=== PATIENT | female | born 1940 | race Two or more races ===

== ENCOUNTER 2024-06-04 12:03 | Inpatient (IN) | payer MEDICARE, MEDICAID ==
[~2024-06-04] VITALS: Ht 162.6 cm; Wt 86.0 kg
[2024-06-04] VITALS (7 sets, daily range): BP systolic 90–111; BP diastolic 47–61; PULSE 82–123; RESP 16–30; O2SAT 97–100
--- NOTE | 2024-06-04 12:29 | ED.PDOC ---
CPR-HPI HPI Comments 85 y/o F is BIBA for the C/c of CPR x1127, today. Per EMS, the pt was in the car with the family heading down to the ER due from the pt having SOB. En rout to the ER the family witnessed the pt go down in the car. CPR started at 1127 as well as an unknown down time due from the family being bad Hx. EMS states on receiving the call at x1124 and arriving [phone]. En rout to the ED, EMS gave the pt epinephrine x4 with the last epinephrine being at 1154. EMS note that the pt was PEA the entire time for the full 30 minutes. Arrival to the ED was 1203, CPR started at 1203 and the pt ROSC at 1207. Unable to get PMHx, SHx of pt due from CPR. Family was not at [facility] when pt arrived nor does the pt have prior visits. EMS did state that the pt has COPD. Chief Complaint: CPR Time Seen by MD: 12:03 Reviewed Notes: Nurses Notes, Bag Sorter Notes, Medications, Allergies Allergies: Coded Allergies: NO KNOWN ALLERGIES (Unverified , 06/04/24) Information Source: Emergency Med Personnel Mode of Arrival: EMS Timing: Minutes Duration: Down time prior EMS: (Unknown) Comments Unknown down time but from the received call it would be a total of 39 minutes down since EMS received the call Onset: Witnessed (by family) Available Hx: Unknown Inital rhythm: PEA Treatment: CPR Response: Sustained return of pulse Associated signs and symptoms: None Past Medical History PAST MEDICAL HISTORY: COPD, Unobtainable Surgical History: Unobtainable CLASSROOM INSTRUCTIONAL AIDE History: Unobtainable Family History Family History: Unobtainable Social History Smoker: Unobtainable Alcohol: Unobtainable Drugs: Unobtainable Lives In: Unobtainable Unable to Obtain due to: Medical Urgency, Intubated All Other Systems: Reviewed and Negative Physical Exam General Appearance: Other (PATIENT IS COMATOSE POST CPR) HEENT: Normal ENT Inspection, PERRL/EOMI, Other (PUPILS MID SIZE NONREACTIVE) Neck: Full Range of Motion, Non-Tender, Normal, Normal Inspection Respiratory: Crackles, Decreased Breath Sounds, Expiration, Inspiration, Other (PATIENT ON A RESPIRATOR) Cardiovascular: Irregular, Tachycardia Breast Exam: (L) Mass, Other (MOST PROBABLY BREAST CARCINOMA) Gastrointestinal: Other (MORBIDLY OBESE BUT ALSO DISTENDED) Genitalia: Deferred Pelvic: Deferred Rectal: Deferred Extremities: No pedal edema, Other (PATIENT COMATOSE) Musculoskeletal : Apperance: Normal Neurologic: Flacid, Other (COMATOSE INTUBATED) Cerebellar Function: Unable to Test Reflexes: NOT DONE Skin: Dry, Mottled, Warm Peripheral Pulses: 1+ carotid (R), 1+ carotid (L) Lymphatic: No Adenopathy EKG EKG : Pulse Rate (adult): 120 [place]: Normal Cardiac Rhythm: Afib Was a procedure done? Was a procedure done?: No Differential Dx CPR Differential Diagnosis: Cardiopulmonary arrest, Dysrhythmia, Electrolyte disorder, Myocardial Infarction, Pulmonary Embolus, Respiratory Failure X-Ray, Labs, Meds, VS Vital Signs Date Time Temp Pulse Resp B/P (MAP) Pulse Ox O2 Delivery O2 Flow Rate FiO2 06/04/24 17:53 84 06/04/24 17:26 115/59 06/04/24 17:15 84 22 111/57 (75) 100 06/04/24 17:00 108/59 06/04/24 17:00 108/59 06/04/24 17:00 82 22 108/59 (75) 100 06/04/24 16:45 85 22 104/57 (73) 100 06/04/24 16:30 87 22 113/62 (79) 100 06/04/24 16:17 82 22 111/61 (78) 100 40 06/04/24 16:15 84 22 105/57 (73) 100 06/04/24 16:00 97.8 82 22 104/58 (73) 99 97.8 06/04/24 16:00 104/58 06/04/24 16:00 104/58 06/04/24 15:56 120 06/04/24 15:49 82 22 111/61 (78) 100 40 06/04/24 15:45 84 22 104/62 (76) 100 06/04/24 15:30 125 22 105/66 (79) 100 06/04/24 15:27 120 06/04/24 15:15 121 22 101/58 (72) 100 06/04/24 15:15 119 22 101/58 97 60 06/04/24 15:13 101/58 06/04/24 15:00 107/58 06/04/24 15:00 121 22 107/58 (74) 100 06/04/24 14:45 116 22 89/62 (71) 100 06/04/24 14:30 88/50 06/04/24 14:30 87/56 06/04/24 14:30 116 22 87/56 (66) 100 06/04/24 14:15 117 22 92/51 (65) 100 06/04/24 14:00 121 22 77/49 (58) 100 06/04/24 13:56 77/49 06/04/24 13:48 119 18 71/46 (54) 100 60 06/04/24 13:45 97.7 122 18 69/45 (53) 100 97.7 06/04/24 13:45 69/45 06/04/24 13:40 69/45 06/04/24 13:30 67/43 06/04/24 13:30 124 18 67/43 (51) 100 06/04/24 13:15 126 18 52/29 (37) 100 06/04/24 13:05 123 18 100 Mechanical Ventilator+ 100 100 06/04/24 13:00 131 18 61/42 (48) 100 06/04/24 12:56 137 06/04/24 12:45 135 18 100/46 (64) 100 06/04/24 12:30 134 18 96/48 (64) 100 06/04/24 12:30 129 18 96/48 (64) 100 100 06/04/24 12:15 147 18 108/61 (77) 100 06/04/24 12:03 95.8 0 0 0/0 (0) 0 Lab Test 06/04/24 16:26 06/04/24 15:38 06/04/24 14:54 06/04/24 13:59 Range/Units Lactic Acid Level Pending 6.6 *H 0.4-2.0 mmol/L Troponin I High Sensitivity Pending 21 </=34 ng/L Urine Color Yellow Yellow Urine Clarity Turbid H Clear Urine pH 5.5 5.0-9.0 Urine Specific [place] 1.021 1.001-1.035 Urine Protein 1+ H Negative Urine Ketones Negative Negative Urine Blood 1+ H Negative /uL Urine Nitrite Negative Negative Urine Bilirubin Negative Negative Urine Urobilinogen Normal Negative mg/dL Urine Leukocyte Esterase Negative Negative /uL Urine RBC 37 0 - 4 /hpf Urine Microscopic WBC 26 H 0-5 /HPF Urine Squamous Epithelial Cells Few <5 /hpf Urine Bacteria None seen None Seen /hpf Urine Glucose 4+ H Normal mg/dL Urine Opiates Screen Neg NEGATIVE Urine Fentanyl Screen Neg NEGATIVE Urine Barbiturates Screen Neg NEGATIVE Urine Phencyclidine Screen Neg NEGATIVE Urine Amphetamines Screen Neg NEGATIVE Urine Benzodiazepines Screen Pos NEGATIVE Urine Cocaine Screen Neg NEGATIVE Urine Cannabinoids Screen Neg NEGATIVE Blood Gas Specimen Type Arterial Blood Gas Sample Site Right radial Blood Gas Patient Temperature 37.0 Arterial Blood Date Drawn [id number] Arterial Blood pH 7.503 H 7.350-7.450 Arterial Blood Partial Pressure CO2 53.7 H 32.0-45.0 mmHg Arterial Blood Partial Pressure O2 87.0 83.0-108.0 mmHg Arterial Blood HCO3 41.2 H 21.0-28.0 mmol/L Arterial Blood Oxygen Saturation 97.4 94.0-98.0 % Arterial Blood Base Excess 16.3 H -2.0-3.0 mmol/L Arterial Blood Oxyhemoglobin 95.2 94.0-98.0 % Arterial Blood Carboxyhemoglobin 1.6 H 0.5-1.5 % Arterial Blood Methemoglobin 0.7 0.0-1.5 % Pawan Test Modified Blood Gas Total Hemoglobin 8.20 L 12.0-16.0 g/dL Blood Gas Set Respiration Rate 22.0 Blood Gas Modality Vent - ac FiO2 % 60.0 Blood Gas Tidal Volume 400.0 Blood Gas PEEP or CPAP 5.0 Blood Gas Critical Value Read Back Yes White Blood Count 9.5 4.4-10.8 10^3/uL Red Blood Count 2.81 L 4.0-5.20 10^6/uL Hemoglobin 7.0 *L 12.2-16.2 g/dL Hematocrit 24.7 L 36.0-46.0 % Mean Corpuscular Volume 88.0 80.0-100.0 fL Mean Corpuscular Hemoglobin 24.8 L 28.0-32.0 pg Mean Corpuscular Hemoglobin Concent 28.2 L 32.0-36.0 g/dL Red Cell Distribution Width 21.0 H 11.8-14.3 % Platelet Count 265 140-450 10^3/uL Mean Platelet Volume 8.1 6.9-10.8 fL Neutrophils (%) (Auto) 37.0-80.0 % Lymphocytes (%) (Auto) 10.0-50.0 % Monocytes (%) (Auto) 0.0-12.0 % Basophils (%) (Auto) 0.0-2.0 % Neutrophils # (Auto) 1.6-8.6 10 ^3/uL Lymphocytes # (Auto) 0.4-5.4 10 ^3/uL Monocytes # (Auto) 0-1.3 10 ^3/uL Differential Total Cells Counted 100.0 100 Neutrophils % (Manual) 77 37.0-80.0 Band Neutrophils % (Manual) 17 Lymphocytes % (Manual) 3 L 10.0-50.0 Monocytes % (Manual) 2 0-12 Eosinophils % (Manual) 1 0-7 Basophils % (Manual) 0 0.0-2.0 Metamyelocytes % (manual) 0 Myelocytes % (Manual) 0 Promyelocytes % (Manual) 0 Blast Cells % (Manual) 0 Reactive Lymphocytes 0 Platelet Estimate Adequate Hypochromasia (manual) Slight Anisocytosis (manual) Slight Prothrombin Time 10.6 9.3-11.8 sec Prothrombin Time INR 1.00 0.9-1.15 Activated Partial Thromboplast Time 22.9 L 24.5-34.5 SEC D-Dimer, Quantitative 13.83 H 0.0-0.49 mg/L FEU Sodium Level 143 136-145 mmol/L Potassium Level 3.9 3.5-5.1 mmol/L Chloride Level 95 L 98-107 mmol/L Carbon Dioxide Level 39 H 20-31 mmol/L Anion Gap 9 5-15 Blood Urea Nitrogen 31 H 9-23 mg/dL Creatinine 0.91 0.550-1.02 mg/dL Glomerular Filtration Rate Calc 61 >90 mL/min BUN/Creatinine Ratio 34.1 H 10.0-20.0 Serum Glucose 251 H 74-106 mg/dL Calcium Level 9.2 8.7-10.4 mg/dL Total Bilirubin 0.3 0.2-1.0 mg/dL Aspartate Amino Transferase (AST) 56 H 13-40 U/L Alanine Aminotransferase (ALT) 28 7-40 U/L Alkaline Phosphatase 97 46-116 U/L Total Protein 5.5 L 5.7-8.2 g/dL Albumin 3.5 3.2-4.8 g/dL Test 06/04/24 13:53 06/04/24 13:22 06/04/24 13:21 Range/Units Influenza Type A Antigen Negative Negative Influenza Type B Antigen Negative Negative SARS-CoV-2 Antigen (Rapid) Negative NEGATIVE Blood Gas Specimen Type Arterial Blood Gas Sample Site Right radial Blood Gas Patient Temperature 37.0 Arterial Blood Date Drawn [id number] Arterial Blood pH 7.344 L 7.350-7.450 Arterial Blood Partial Pressure CO2 63.9 *H 32.0-45.0 mmHg Arterial Blood Partial Pressure O2 273.6 H 83.0-108.0 mmHg Arterial Blood HCO3 34.0 H 21.0-28.0 mmol/L Arterial Blood Oxygen Saturation 99.7 H 94.0-98.0 % Arterial Blood Base Excess 7.3 H -2.0-3.0 mmol/L Arterial Blood Oxyhemoglobin 97.8 94.0-98.0 % Arterial Blood Carboxyhemoglobin 1.4 0.5-1.5 % Arterial Blood Methemoglobin 0.5 0.0-1.5 % Pawan Test Modified Blood Gas Total Hemoglobin 7.60 L 12.0-16.0 g/dL Blood Gas Set Respiration Rate 18.0 Blood Gas Modality Vent - ac FiO2 % 100.0 Blood Gas Tidal Volume 400.0 Blood Gas PEEP or CPAP 5.0 Specimen Drawn By Head Stock Transfer Clerk sandy barber Blood Gas Critical Value Read Back Yes Blood Gas Notified Whom rommel Anaya Blood Gas Notified Time [id number] Blood Gas Notified By Head Stock Transfer Clerk sandy barber Troponin I High Sensitivity 35 *H </=34 ng/L Current Medications Medications (Trade) Dose Ordered Sig/Mickey Route Start Time Stop Time Status Last Admin Midazolam HCl 50 ml @ 1 mls/hr Q24H IV 06/04/24 12:45 06/04/24 14:30 Norepinephrine Bitartrate 250 ml @ 3.75 mls/hr Q24H IV 06/04/24 13:30 06/04/24 13:30 Sodium Chloride 500 ml @ 500 mls/hr Q1H ONCE IV 06/04/24 13:30 06/04/24 14:29 DC 06/04/24 13:23 Ceftriaxone Sodium 50 ml @ 100 mls/hr ONCE ONCE IV 06/04/24 16:15 06/04/24 16:44 DC 06/04/24 16:18 Piperacillin Sod/ Tazobactam Sod 100 ml @ 100 mls/hr ONCE ONCE IV 06/04/24 16:15 06/04/24 17:14 DC 06/04/24 17:02 X-Ray, Labs, Meds, VS Comment COURSE IN THE EMERGENCY DEPARTMENT EVENTFUL PATIENT CAME IN CODE BLUE WITH A CPR IN PROGRESS PATIENT AT THE SCENE FOR 15 MINUTES ON ARRIVAL PATIENT CONTINUED S AND RECOVERED IS STRONG PULSE THEN SHE WENT TO UNCONTROLLED ATRIAL FIBRILLATION SHE WAS ELECTRIC SHOCKED AT 20 AND CONVERTED TO NORMAL ATRIAL FIBRILLATION BUT STILL AT 1:20 A.M. WITH SOME PVCS PATIENT IS INTUBATED THE TUBE IS INTO THE RIGHT BRONCHUS AND WILL BE PULLED AT LEAST 1 IN THE CHEST X-RAY SHOWS AIR MULTIPLE AIRSPACE OPACITIES IN THE PLEURAL EFFUSIONS LEFT SIDE CBC 9500 WITH 77% NEUTROPHILS H AND H SEVEN AND 24.7 INR 1.00 D-DIMER 13.8 VERY ELEVATED BUT THE PATIENT HAD ELECTRIC SHOCK CMP BLOOD SUGAR 251 LACTIC ACID 6.6 TROPONIN 21 INFLUENZA A NEGATIVE INFLUENZA B NEGATIVE COVID-19 NEGATIVE PATIENT IS DNR AT THIS TIME THE FAMILY AT BEDSIDE AND WISHES TO CONTINUE TAKING CARE OF THIS PATIENT PATIENT WILL BE ADMITTED TO CCU FOR FURTHER CARE CARDIOLOGY WILL BE CONSULTED Time of 1ST Reevaluation: 12:33 Reevaluation 1ST: Unchanged Time of 2ND Reevaluation: 15:49 Reevaluation 2ND: Unchanged Patient Education/Counseling: Pt Unresponsive Family Education/Counseling: No Family Present Departure 1 Departure Time of Disposition: 15:52 Impression: Primary Impression: Cardiopulmonary arrest with successful resuscitation Additional Impressions: Uncontrolled atrial fibrillation Opacities of both lungs present on chest x-ray Pleural effusion Anemia Elevated d-dimer Hyperglycemia due to diabetes mellitus Elevated lactic acid level History of COPD Disposition: ADMITTED INPATIENT Admit to: ICU Condition: Critical Critical Care Note Critical Care Time?: Yes (30 min-critical care time only) Heart Score Heart Score: Heart Score Response (Comments) Value History Highly Suspicious 2 EKG Repolarization Disturb 1 Age >65 2 Risk Factors >3 or Hx ASHD 2 Troponin Normal limit 0 Total 7 Stability Stability form required: No I personally scribed for LENNIE FLORES MD ([email or web address]) on 06/04/24 at 12:28. Electronically submitted by Hunter Elizalde ([email or web address]). I personally scribed for LENNIE FLORES MD ([email or web address]) on 06/04/24 at 12:37. Electronically submitted by Hunter Elizalde ([email or web address]). LENNIE FLORES MD Jun 04, 2024 12:28
--- NOTE | 2024-06-04 13:08 | DVH ---
CHEST RADIOGRAPH Indication: INTUBATION Technique: Single frontal view of the chest was obtained COMPARISON: None FINDINGS: Lines and Tubes: Enteric tube terminates below the diaphragm outside of the field of view. Endotrache al tube terminates in the lower thoracic trachea. Lungs: Patchy multifocal airspace disease. Pleura: Suggestion of moderate left pleural effusion. No pneumothorax. Cardiomediastinal contours: Obscured Bones: Degenerative changes. IMPRESSION: 1. Endotracheal tube terminates in the lower thoracic trachea. 2. Patchy multifocal airspace disease. 3. Moderate left pleural effusion.
[2024-06-04] MEDS: NOREPINEPHRINE 8 MG/250ML KIT 250 ML IV ONE (13:22)
[2024-06-04] MEDS: MIDAZOLAM DRIP 50 mg/50mL 50 ML IV ONE (13:22)
[2024-06-04] MEDS: MIDAZOLAM DRIP 50 mg/50mL 50 ML IV SCH (13:23)
[2024-06-04] MEDS: SODIUM CHLORIDE 0.9% 500 ML IV ONE (13:23)
[2024-06-04 13:30] LABS: Base Excess 7.3 mmol/L (-2.0-3.0)
[2024-06-04] MEDS: NOREPINEPHRINE 8 MG/250ML KIT 250 ML IV SCH (13:30)
[2024-06-04 14:24] LABS: Hematocrit 24.7 % (36.0-46.0); Mean Corpuscular Hemoglobin 24.8 pg (28.0-32.0); Mean Corpuscular Hgb Conc. 28.2 g/dL (32.0-36.0); Platelet Count (auto) 265 10^3/uL (140-450); Red Blood Cells 2.81 10^6/uL (4.0-5.20); White Blood Cell 9.5 10^3/uL (4.4-10.8)
[2024-06-04 14:35] LABS: Basophils % (manual) 0 (0.0-2.0); Blast Cells 0; Metamyelocytes % 0; Myelocytes % 0; Promyelocytes % 0; Reactive Lymphocytes 0
[2024-06-04 14:40] LABS: Alanine Aminotransferase 28 U/L (7-40); Albumin 3.5 g/dL (3.2-4.8); Alkaline Phosphatase 97 U/L (46-116); Anion Gap 9 (5-15); BUN/Creatinine Ratio 34.1 (10.0-20.0); Bilirubin, Total 0.3 mg/dL (0.2-1.0); Calcium 9.2 mg/dL (8.7-10.4); Potassium 3.9 mmol/L (3.5-5.1); Sodium 143 mmol/L (136-145)
[2024-06-04 14:41] LABS: Partial Thromboplastin Time 22.9 SEC (24.5-34.5); Prothrombin Time 10.6 sec (9.3-11.8)
[2024-06-04 14:45] LABS: Aspartate Aminotransferase 56 U/L (13-40); Blood Urea Nitrogen 31 mg/dL (9-23); Carbon Dioxide 39 mmol/L (20-31); Chloride 95 mmol/L (98-107); Glucose 251 mg/dL (74-106); Total Protein 5.5 g/dL (5.7-8.2)
[2024-06-04 14:46] LABS: Anisocytosis Slight; Band Neutrophils % (manual) 17; Eosinophils % (manual) 1 (0-7); Hypochromia Slight; Lymphocytes % (manual) 3 (10.0-50.0); Monocytes % (manual) 2 (0-12)
[2024-06-04 14:47] LABS: Platelet Estimate Adequate
[2024-06-04 14:50] LABS: Lactic Acid w/Reflex 6.6 mmol/L (0.4-2.0)
[2024-06-04 15:00] LABS: Base Excess 16.3 mmol/L (-2.0-3.0)
[2024-06-04 15:07] LABS: COVID19 ANTIGEN SOFIA FIA NEGATIVE (NEGATIVE); Rapid Influenza A Negative (Negative); Rapid Influenza B Negative (Negative)
[2024-06-04 15:39] LABS: Urine Bacteria None Seen /hpf (None Seen)
[2024-06-04 15:58] LABS: Urine Blood 1+ /uL (Negative); Urine Clarity Turbid (Clear); Urine Color Yellow (Yellow); Urine Protein, UAD 1+ (Negative); Urine Specific Gravity 1.021 (1.001-1.035); Urine Squamous Epithelial Cell FEW /hpf (<5); Urine Urobilinogen Normal (Negative); Urine WBC 26 /HPF (0-5); Urine pH 5.5 (5.0-9.0)
[2024-06-04 16:03] LABS: Amphetamine Screen, Urine Neg (NEGATIVE); Barbiturate Scree,Urine Neg (NEGATIVE); Benzodiazephine Screen, Urine Pos (NEGATIVE); Cannabinoid Screen, Urine Neg (NEGATIVE); Cocaine Screen, Urine Neg (NEGATIVE); Opiate Scree,Urine Neg (NEGATIVE); Phencyclidine Screen, Urine Neg (NEGATIVE)
[2024-06-04] MEDS: cefTRIAXone 1GM/50ML D5W 50 ML IV ONE (16:18)
[2024-06-04] MEDS: PIPERACILLIN-TAZOB 3.375GM 100 ML IV ONE (17:02)
--- NOTE | 2024-06-04 18:06 | RESUS ---
CODE STARLA ASSESSSMENT History of Events History of Events: SECURED JOSE MANUEL CHA ARRIVED AT 1203 INTUBATED AND I/O IN PLACE BY EMS. PER EMS FAMILY WAS DRIVING PATIENT TO HOSPITAL FOR SOB WHEN THEY RECEIVED 911 CALL. PATIENT RECEIVED 4 ROUNDS OF EPI AND REMAINED IN PEA. Initial Information Date: Jun 04, 2024 Time: 12:03 Location of Arrest: In Field Arrest Witnessed: Yes CPR started initial time: 11:27 CPR started by whom: EMS Pre-Hospital Care: ACLS Type of arrest: Cardiac, Adult, Witnessed Spontaneous Respirations: No Pulse Present: No Monitoring: Pulse Oximetry Crash Cart Opened and Supplies: Yes Airway Ventilation Breathing at Onset: Assisted Oxygen Delivery Method: Ambu-Bag Artificial Ventilation: Bag/Endo tube Intubated by: EMS Circulation Circulation #1: Time: 12:03 Pulse Rate (adult): 0 Blood Pressure Systolic: 0 Blood Pressure Diastolic: 0 Circulation Comment: PEA Circulation #2: Time: 12:05 Pulse Rate (adult): 0 Blood Pressure Systolic: 0 Blood Pressure Diastolic: 0 Circulation Comment: PEA Circulation #3: Time: 12:07 Pulse Rate (adult): 119 Blood Pressure Systolic: 187 Blood Pressure Diastolic: 115 Temperature (Fahrenheit): 95.6 Circulation Comment: ROSC Defibrillation Defbrillation : Time Defibrillator Applied: 12:03 EKG Rhythm: Atrial Fibrillation (SYNCHYRONIZED CARDIOVERSION PER DR FLORES POST ROSC) Compressions: Manual Time Defibrillator Shocked Pt.: 12:08 Defib. Joules: 20 Pulse Present: Yes Comment HR 163 Procedure - IV Procedure - IV : IV start time: 12:06 IV Location: Antecubital IV Placed: RN IV Gauge: 20 Procedure - Intraosseous Site of Intraosseous: Tibia kilo-medial (LEFT) Intraosseous inserted by: EMS PRIOR TO ED ARRIVAL Medications & Response Medications and Responses : Medication Time: 12:04 ADULT Medications Given ADULT: Epinephrine 1 mg Route of Administration: IO Nurses Notes [place] Coma Scale Eye Opening: None (1) Jw Coma Scale Verbal: None (1) Jw Coma Scale Motor: None (1) Time Code Ended Post Arrest Status: Ventilated Outcome of code: Successful Code Team Present: DR FLORES, RUSH Alex RN, LLOYD ZAYAS RN, CARLOS Campos RN, TONYA Navarro RN, JIGNESH SINGH TECH, TESS RT, BELLA RT, COLEEN RT, CHRISSIE EMT STUDENT ROSC Time of ROSC: 12:07 Rush Medina Jun 04, 2024 18:06
[2024-06-04] MEDS ORDERED: DEXTROSE (50%) 50ML SYRG IV PRN (18:45)
[2024-06-04] MEDS ORDERED: ONDANSETRON HCL 4 MG/2 ML VIAL IV PRN (18:45)
[2024-06-04] MEDS: SODIUM CHLORIDE 0.9% 1,000 ML IV SCH (19:01)
[2024-06-04 19:15] LABS: Hematocrit 25.5 % (36.0-46.0); Hemoglobin 7.2 g/dL (12.2-16.2)
[2024-06-04] MEDS: AZITHROMYCIN 500MG/ 250ML 250 ML IV SCH (19:16)
[2024-06-04] MEDS ORDERED: NITROGLYCERIN 0.4 MG SL TAB SL PRN (20:00)
[2024-06-04] MEDS ORDERED: MORPHINE SULFATE INJ 2 MG/ml SYRG IV PRN (20:00)
[2024-06-04] MEDS ORDERED: ALBUTEROL SULF 2.5 MG/0.5ML(0.5%) NEB SOLN NEB PRN (20:00)
--- NOTE | 2024-06-04 20:46 | DVH ---
EXAM: CT STROKE CTH INDICATION: ams TECHNIQUE: CT of the head without intravenous contrast. Radiation Dose Information: CT Dose: CTDI volume is 53.99 mGy. Dose-length product is 767.54 mGy*cm The dose indicators for CT are the volume Computed Tomography (CT) Dose Index (CTDIvol) and the Dose Length Product (DLP), and are measured in units of mGy and mGy-cm, respectively. These indicators are not patient dose, but values generated from the CT scanner acquisition factors. The report includes radiation exposure data for exposures received during this examination. COMPARISON: None FINDINGS: There is no evidence of acute intracranial hemorrhage, extra-axial collection, mass effect, midline s hift, herniation or hydrocephalus. The ventricles, sulci and cisterns are age appropriate. The taylor-white differentiation is intact. Patchy periventricular and subcortical white matter hypoattenuation is nonspecific but may be related to small vessel ischemic disease. Mucosal thickening in the maxillary sinuses bilaterally and mastoid air cells are clear. The surrounding soft tissues and osseous structures are unremarkable. IMPRESSION: 1. No acute intracranial hemorrhage 2. No CT findings of territorial ischemia.
--- NOTE | 2024-06-04 20:59 | DVHNC2 ---
Procedure - pt lost both peripheral lines. RN approached me to place a central iv access. per RN, family had requested to " do everything."pt is intubated, so i used a right femoral vein approach. under total sterile technique, i was able to access the right femoral vein on the second approach. dark nonpulsating venous blood returned from all 3 ports and all three flushed with sterile saline easily. biopatch place, and triple lumen was anchored by 2 stitches. no complications. ANISA SALEH MD Jun 04, 2024 20:59
[2024-06-04] MEDS: IOHEXOL 350 MG/ML 100ML IJ ONE (21:18)
[2024-06-04] MEDS: ACETAMINOPHEN 325 MG TAB PO PRN (22:05)
--- NOTE | 2024-06-04 22:33 | DVH ---
CT ANGIO HEAD/Neck INDICATION: PATIENT FOUND DOWN AND IS CURRENTLY CONSCIOUS COMPARISON: None STROKE TECHNIQUE: FOLLOW THE INJECTION OF 100 ML OF OMNIPAQUE 350 IMAGING THROUGH THE HEAD AND NECK WERE OBT AINED AT 2 MM INTERVALS. SAGITTAL AND CORONAL REFORMATIONS WERE SUBMITTED FOR INTERPRETATION. EXAM DATE: 06/04/2024 09:30 PM RADIATION DOSE: CTDIvol: 20.3 mGy, DLP: 1175.32 mGy*cm OMNIPAQUE 350: 100 ML. PROCEDURE: CT angiogram images were obtained of the head and neck. Coronal and sagittal reformatted i mages were created as well as 3D and/or MIP reconstructions. All CT scans at this medical facility are performed using dose modulation techniques as appropriate t o a performed exam including the following: Automated exposure control was utilized; adjustment of th e MA and/or KV according to patient size; and use of iterative reconstruction technique. FINDINGS: Head: The brain shows normal morphology and taylor-white matter differentiation, without intracranial hemorrh age, mass effect, extra-axial fluid collection, or abnormal contrast enhancement. The ventricles are normal in size. The skull and visible facial bones are intact. The paranasal sinuses, mastoid air jl ls, and middle ear cavities are normally aerated. The soft tissues of the scalp and face are unremark able. On the CT angiographic images, the internal carotid arteries are normal in caliber from the skull bas e to their bifurcations. The anterior and middle cerebral arteries and their branches appear normal. The anterior communicating artery appears normal. The bilateral posterior communicating arteries are normal. The vertebral arteries are codominant. The vertebral, basilar, superior cerebellar, and poste rior cerebral arteries are normal in caliber. No aneurysm, arteriovenous malformation, or stenosis is visible. Neck: The common carotid, internal carotid, external carotid, and vertebral arteries are normal in caliber. The vertebral arteries are codominant. The visualized intracranial arteries are normal. There is no evidence of contrast extravasation, filling defects, stenosis, or dissection. The pharynx and airway are normal. The thyroid, submandibular, and parotid glands appear normal. No l ymphadenopathy is seen. The visualized intracranial structures are unremarkable. IMPRESSION: 1. NO LARGE VESSEL OCCLUSION. 2. ENDOTRACHEAL TUBE AND NASOGASTRIC TUBE VISUALIZED. 3. Normal CT angiographic findings of the head and neck. 4.
--- NOTE | 2024-06-04 22:59 | DVH ---
Procedure: CT CT ANGIO CHEST CONTRAST Reason for study/Clinical History: r/o pe Comparison Study: None available at time of dictation. Exam Date: 06/04/2024 09:30 PM Radiation Dose Information: CT Dose: CTDI volume is 20.3 mGy. Dose-length product is 1175.32 mGy*cm Contrast: Type of contrast: OMNIPAQUE 350 Contrast inject: 100 ML Contrast wasted:0 TECHNIQUE: After the uneventful administration of intravenous contrast intravenously, CT imaging was performed through the chest. Coronal and sagittal reformations were performed by the technologist. Sagittal and coronal MIP images are reconstructed and submitted for interpretation. FINDINGS: Lower Neck: Visualized portions of the thyroid gland are unremarkable. Aorta and Vasculature: Normal caliber of thoracic aorta. Lymph Nodes: No enlarged intrathoracic lymph nodes. Mediastinum: Heart size is normal. There is no pericardial effusion. The esophagus is unremarkable. Lungs: Moderate left pleural effusion with atelectasis in the left lower lung field and infiltrate in the left base.. significant pneumothorax. 16 mm pulmonary nodule upper lung field. 15 mm pulmonary nodule right lower lobe. 11 mm pleural-based nodule right lower lobe. Musculoskeletal: No acute osseous abnormality. Upper abdomen: Limited portions of the upper abdomen are unremarkable. IMPRESSION: 1. Multiple pulmonary nodules right lung field measuring 16 mm in the upper lung field ( series 313 i mage 18 15 mm nodule right lower lobe series 313 image 28 ) 11 mm nodule pleural-based right lower lo be series 313 image 30. Can not exclude metastatic disease. 2. Moderate left pleural effusion. 3. Left-sided pneumothorax extending from the apex of the diaphragm measuring 1-2 cm from the lateral chest wall. Estimated at 30-40% CRITICAL FINDINGS Critical Result: CTA OF THE CHEST Findings discussed with , Dr Rivers at 06/04/2024 10:51 PM, and acknowledged receipt and understandin g of the findings. .. All CT scans at this medical facility are performed using dose modulation techniques as appropriate t o a performed exam including the following: Automated exposure control was utilized; adjustment of th e MA and/or KV according to patient size; and use of iterative reconstruction technique.
[2024-06-04 23:32] LABS: Base Excess 18.8 mmol/L (-2.0-3.0)
--- NOTE | 2024-06-04 23:49 | DVH ---
CHEST RADIOGRAPH Indication: PE Technique: Single frontal view of the chest was obtained Comparison: XY CHEST PORTABLE on DOS: 06/04/24 Findings/ IMPRESSION: Endotracheal tube projects 5 cm superior to the evy. Enteric tube projects below the GE junction w ithout visualization of side port or catheter tip. Moderate cardiomegaly. Moderate left-sided pleural effusion with superimposed infection not excluded.
[2024-06-04] MEDS: ACCU-CHEK COMFORT CURVE STRIP VI SCH (23:59)
[2024-06-05] VITALS (86 sets, daily range): BP systolic 104–135; BP diastolic 32–87; PULSE 82–96; RESP 20–22; TEMP 99.3–100.6; O2SAT 96–100
[2024-06-05] MEDS: InsuLIN REG 1unit/0.01ml Soln (100units/ml) SC SCH (00:06)
[2024-06-05 02:30] LABS: Base Excess 15.3 mmol/L (-2.0-3.0)
[2024-06-05 03:45] LABS: Basophils # (auto) 0 10 ^3/uL (0-0.2); Basophils % (auto) 0.3 % (0.0-2.0); Eosinophils # (auto) 0.1 10 ^3/uL (0-0.8); Eosinophils % (auto) 0.6 % (0.0-7.0); Hematocrit 24.6 % (36.0-46.0); Hemoglobin 7.2 g/dL (12.2-16.2); Lymphocytes # (auto) 0.4 10 ^3/uL (0.4-5.4); Mean Corpuscular Hemoglobin 24.4 pg (28.0-32.0); Mean Corpuscular Hgb Conc. 29.4 g/dL (32.0-36.0); Monocytes # (auto) 0.8 10 ^3/uL (0-1.3); Monocytes % (auto) 7.9 % (0.0-12.0); Neutrophils # (auto) 8.4 10 ^3/uL (1.6-8.6); Neutrophils % (auto) 87.2 % (37.0-80.0); Nucleated Red Blood Cells % 0.4 %; Platelet Count (auto) 259 10^3/uL (140-450); Red Blood Cells 2.96 10^6/uL (4.0-5.20); White Blood Cell 9.7 10^3/uL (4.4-10.8)
[2024-06-05 03:46] LABS: Red Cell Distribution Width 20.8 % (11.8-14.3)
--- NOTE | 2024-06-05 03:55 | DVH ---
CHEST RADIOGRAPH Indication: reassess poss. pneumo Technique: Single frontal view of the chest was obtained Comparison: XY CHEST XRAY 1 VIEW on DOS: 06/04/24, XY CHEST PORTABLE on DOS: 06/04/24 IMPRESSION: Heart is enlarged. Endotracheal tube and enteric tube are redemonstrated, unchanged. There is modera te pulmonary vascular congestion. Moderate left pleural effusion with increased opacification of the left lower lobe. Small left apical pneumothorax appears similar to prior examination.
[2024-06-05 04:11] LABS: Alanine Aminotransferase 28 U/L (7-40); Alkaline Phosphatase 84 U/L (46-116); Anion Gap 10 (5-15); Calcium 9.1 mg/dL (8.7-10.4); Sodium 144 mmol/L (136-145)
[2024-06-05 04:12] LABS: BUN/Creatinine Ratio 38.5 (10.0-20.0)
[2024-06-05 04:13] LABS: Albumin 3.2 g/dL (3.2-4.8)
[2024-06-05 04:14] LABS: Bilirubin, Total 0.4 mg/dL (0.2-1.0)
[2024-06-05 04:27] LABS: Blood Urea Nitrogen 40 mg/dL (9-23); Carbon Dioxide 40 mmol/L (20-31); Chloride 94 mmol/L (98-107); Glucose 215 mg/dL (74-106); Potassium 3.3 mmol/L (3.5-5.1)
[2024-06-05 04:28] LABS: Aspartate Aminotransferase 50 U/L (13-40); Total Protein 5.2 g/dL (5.7-8.2)
--- NOTE | 2024-06-05 04:44 | DVHHP2 ---
History of Present Illness Reason for Visit: Shortness of breath History of Present Illness 85-year-old female presents for evaluation of shortness for breath. Patient with a history of left breast cancer currently undergoing treatment at [place]. Patient presents with a one day history of shortness for breath. Family opted to take patient to [place]. In route patient became unresponsive and CPR was started. It was stated that approximate downtime being 25 minutes. Patient is intubated and sedated. Past Medical History COPD and breast cancer Past Surgical History None Family History Unknown Smoke: No ALCOHOL: none Drugs: None Lives: with Family Review of Systems Review of Systems Unable to complete review of systems patient is sedated and intubated. Allergies: Coded Allergies: NO KNOWN ALLERGIES (Unverified , 06/04/24) Medications Current Medications Medications Dose Ordered Sig/Mickey Route Start Time Stop Time Status Last Admin Dose Admin Midazolam HCl 50 ml @ 1 mls/hr Q24H IV 06/04/24 12:45 06/04/24 23:15 6 MLS/HR Norepinephrine Bitartrate 250 ml @ 3.75 mls/hr Q24H IV 06/04/24 13:30 06/05/24 01:15 37.5 MLS/HR Ceftriaxone Sodium 50 ml @ 100 mls/hr DAILY@09 IV 06/05/24 09:00 Azithromycin 250 ml @ 125 mls/hr DAILY IV 06/04/24 18:55 06/04/24 19:16 125 MLS/HR Sodium Chloride 1,000 ml @ 75 mls/hr [id number] IV 06/04/24 18:45 06/04/24 19:01 75 MLS/HR Ondansetron HCl 4 mg Q4HP PRN IV 06/04/24 18:45 Acetaminophen 650 mg Q6HP PRN PO 06/04/24 18:45 06/04/24 22:05 650 MG Diagnostic Test (Pha) 1 strip Q6HR 06/05/24 00:00 06/04/24 23:59 1 STRIP Insulin Human Regular Q6HR SC 06/05/24 00:00 06/05/24 00:06 3 UNITS Dextrose 50 ml UD PRN IV 06/04/24 18:45 Pantoprazole Sodium 40 mg DAILY IV 06/05/24 10:00 Nitroglycerin 0.4 mg Q5MINP PRN SL 06/04/24 20:00 Morphine Sulfate 2 mg Q30M PRN IV 06/04/24 20:00 Albuterol 2.5 mg Q6HPRN PRN NEB 06/05/24 04:30 Exam Vital Signs Vital Signs Date Time Temp Pulse Resp B/P (MAP) Pulse Ox O2 Delivery O2 Flow Rate FiO2 06/05/24 04:36 85 22 120/39 (66) 100 60 06/05/24 03:30 100.6 100.6 06/04/24 19:30 Mechanical Ventilator+ Exam Gen: 85-year-old female in mild distress Skin: Warm, dry, normal color and texture, no rash. HEENT: Normocephalic atraumatic, mucous membranes moist and pink. Neck: Cervical and supraclavicular nodes normal without enlargement, trachea is midline, thyroid gland is normal without masses. Pulmonary: Intubated, diminished breath sounds bilaterally Cardiac: Regular rate and rhythm. No murmur Abdomen: Soft, nontender, nondistended, bowel sounds present all 4 quadrants, no guarding, no rigidity, no organomegaly. Extremities: No cyanosis, clubbing, no edema Neuro: Sedated Labs/Xrays ORDERING PHYSICIAN: CIARRA SHEARER PROCEDURE(s): CTH - STROKE CTH REASON: [facility] ORDER NUMBER(s): [id number], ACCESSION NUMBER(s): [id number] ADDENDUM ADDENDUM # 1 CRITICAL FINDINGS: Critical Result: Stroke Alert : Negative Findings discussed with LENNIE Peters at 06/04/2024 08:59 PM, and acknowledged receipt and understanding of the findings. .. ORIGINAL REPORT EXAM: CT STROKE CTH INDICATION: ams TECHNIQUE: CT of the head without intravenous contrast. Radiation Dose Information: CT Dose: CTDI volume is 53.99 mGy. Dose-length product is 767.54 mGy*cm The dose indicators for CT are the volume Computed Tomography (CT) Dose Index (CTDIvol) and the Dose Length Product (DLP), and are measured in units of mGy and mGy-cm, respectively. These indicators are not patient dose, but values generated from the CT scanner acquisition factors. The report includes radiation exposure data for exposures received during this examination. COMPARISON: None FINDINGS: There is no evidence of acute intracranial hemorrhage, extra-axial collection, mass effect, midline shift, herniation or hydrocephalus. The ventricles, sulci and cisterns are age appropriate. The taylor-white differentiation is intact. Patchy periventricular and subcortical white matter hypoattenuation is nonspecific but may be related to small vessel ischemic disease. Mucosal thickening in the maxillary sinuses bilaterally and mastoid air cells are clear. The surrounding soft tissues and osseous structures are unremarkable. IMPRESSION: 1. No acute intracranial hemorrhage 2. No CT findings of territorial ischemia. ATED BY: LITO TERRY Jr., DO DICTATED DATE/TIME: 06/04/242107 SIGNED BY: LITO TERRY Jr., DO SIGNED DATE/TIME: 06/04/242107 CC: EXAM: CT STROKE CTH INDICATION: ams TECHNIQUE: CT of the head without intravenous contrast. Radiation Dose Information: CT Dose: CTDI volume is 53.99 mGy. Dose-length product is 767.54 mGy*cm The dose indicators for CT are the volume Computed Tomography (CT) Dose Index (CTDIvol) and the Dose Length Product (DLP), and are measured in units of mGy an d mGy-cm, respectively. These indicators are not patient dose, but values generated from the CT scanner acquisition factors. The report includes radiation exposure data for exposures received during this examination. COMPARISON: None FINDINGS: There is no evidence of acute intracranial hemorrhage, extra-axial collection, mass effect, midline shift, herniation or hydrocephalus. The ventricles, sulci and cisterns are age appropriate. The taylor-white differentiation is intact. Patchy periventricular and subcortical white matter hypoattenuation is nonspecific but may be related to small vessel ischemic disease. Mucosal thickening in the maxillary sinuses bilaterally and mastoid air cells are clear. The surrounding soft tissues and osseous structures are unremarkable. IMPRESSION: 1. No acute intracranial hemorrhage 2. No CT findings of territorial ischemia. RING PHYSICIAN: KACI SALEH MD PROCEDURE(s): CXR1 - CHEST XRAY 1 VIEW REASON: reassess poss. pneumo ORDER NUMBER(s): [id number], ACCESSION NUMBER(s): [id number] CHEST RADIOGRAPH Indication: reassess poss. pneumo Technique: Single frontal view of the chest was obtained Comparison: XY CHEST XRAY 1 VIEW on DOS: 06/04/24, XY CHEST PORTABLE on DOS: 06/04/24 IMPRESSION: Heart is enlarged. Endotracheal tube and enteric tube are redemonstrated, unchanged. There is moderate pulmonary vascular congestion. Moderate left pleural effusion with increased opacification of the left lower lobe. Small left apical pneumothorax appears similar to prior examination. RING PHYSICIAN: CIARRA SHEARER PROCEDURE(s): CTACH - CT ANGIO CHEST CONTRAST REASON: r/o pe ORDER NUMBER(s): [id number], ACCESSION NUMBER(s): [id number] Procedure: CT CT ANGIO CHEST CONTRAST Reason for study/Clinical History: r/o pe Comparison Study: None available at time of dictation. Exam Date: 06/04/2024 09:30 PM Radiation Dose Information: CT Dose: CTDI volume is 20.3 mGy. Dose-length product is 1175.32 mGy*cm Contrast: Type of contrast: OMNIPAQUE 350 Contrast inject: 100 ML Contrast wasted:0 TECHNIQUE: After the uneventful administration of intravenous contrast intravenously, CT imaging was performed through the chest. Coronal and sagittal reformations were performed by the technologist. Sagittal and coronal MIP images are reconstructed and submitted for interpretation. FINDINGS: Lower Neck: Visualized portions of the thyroid gland are unremarkable. Aorta and Vasculature: Normal caliber of thoracic aorta. Lymph Nodes: No enlarged intrathoracic lymph nodes. Mediastinum: Heart size is normal. There is no pericardial effusion. The esophagus is unremarkable. Lungs: Moderate left pleural effusion with atelectasis in the left lower lung field and infiltrate in the left base.. significant pneumothorax. 16 mm pulmona ry nodule upper lung field. 15 mm pulmonary nodule right lower lobe. 11 mm pleural-based nodule right lower lobe. Musculoskeletal: No acute osseous abnormality. Upper abdomen: Limited portions of the upper abdomen are unremarkable. IMPRESSION: 1. Multiple pulmonary nodules right lung field measuring 16 mm in the upper lung field ( series 313 image 18 15 mm nodule right lower lobe series 313 image 28 ) 11 mm nodule pleural-based right lower lobe series 313 image 30. Can not exclude metastatic disease. 2. Moderate left pleural effusion. 3. Left-sided pneumothorax extending from the apex of the diaphragm measuring 1- 2 cm from the lateral chest wall. Estimated at 30-40% CRITICAL FINDINGS Critical Result: CTA OF THE CHEST Findings discussed with , Dr Shearer at 06/04/2024 10:51 PM, and acknowledged receipt and understanding of the findings. .. All CT scans at this medical facility are performed using dose modulation techniques as appropriate to a performed exam including the following: Automated exposure control was utilized; adjustment of the MA and/or KV according to patient size; and use of iterative reconstruction technique. Labs Test 06/05/24 03:05 06/05/24 02:13 06/05/24 00:17 06/04/24 23:58 Range/Units White Blood Count 9.7 4.4-10.8 10^3/uL Red Blood Count 2.96 L 4.0-5.20 10^6/uL Hemoglobin 7.2 L 12.2-16.2 g/dL Hematocrit 24.6 L 36.0-46.0 % Mean Corpuscular Volume 83.0 # 80.0-100.0 fL Mean Corpuscular Hemoglobin 24.4 L 28.0-32.0 pg Mean Corpuscular Hemoglobin Concent 29.4 L 32.0-36.0 g/dL Red Cell Distribution Width 20.8 H 11.8-14.3 % Platelet Count 259 140-450 10^3/uL Mean Platelet Volume 8.4 6.9-10.8 fL Neutrophils (%) (Auto) 87.2 H 37.0-80.0 % Lymphocytes (%) (Auto) 4.0 L 10.0-50.0 % Monocytes (%) (Auto) 7.9 0.0-12.0 % Eosinophils (%) (Auto) 0.6 0.0-7.0 % Basophils (%) (Auto) 0.3 0.0-2.0 % Neutrophils # (Auto) 8.4 1.6-8.6 10 ^3/uL Lymphocytes # (Auto) 0.4 0.4-5.4 10 ^3/uL Monocytes # (Auto) 0.8 0-1.3 10 ^3/uL Eosinophils # (Auto) 0.1 0-0.8 10 ^3/uL Basophils # (Auto) 0 0-0.2 10 ^3/uL Nucleated Red Blood Cells 0.4 % Sodium Level 144 136-145 mmol/L Potassium Level 3.3 L 3.5-5.1 mmol/L Chloride Level 94 L 98-107 mmol/L Carbon Dioxide Level 40 H 20-31 mmol/L Anion Gap 10 5-15 Blood Urea Nitrogen 40 H 9-23 mg/dL Creatinine 1.04 H 0.550-1.02 mg/dL Glomerular Filtration Rate Calc 52 >90 mL/min BUN/Creatinine Ratio 38.5 H 10.0-20.0 Serum Glucose 215 H 74-106 mg/dL Calcium Level 9.1 8.7-10.4 mg/dL Total Bilirubin 0.4 0.2-1.0 mg/dL Aspartate Amino Transferase (AST) 50 H 13-40 U/L Alanine Aminotransferase (ALT) 28 7-40 U/L Alkaline Phosphatase 84 46-116 U/L Total Protein 5.2 L 5.7-8.2 g/dL Albumin 3.2 3.2-4.8 g/dL Blood Gas Specimen Type Arterial Blood Gas Sample Site Left radial Blood Gas Patient Temperature 37.0 Arterial Blood Date Drawn [id number] Arterial Blood pH 7.563 *H 7.350-7.450 Arterial Blood Partial Pressure CO2 44.2 32.0-45.0 mmHg Arterial Blood Partial Pressure O2 71.7 L 83.0-108.0 mmHg Arterial Blood HCO3 39.0 H 21.0-28.0 mmol/L Arterial Blood Oxygen Saturation 94.2 94.0-98.0 % Arterial Blood Base Excess 15.3 H -2.0-3.0 mmol/L Arterial Blood Oxyhemoglobin 92.4 L 94.0-98.0 % Arterial Blood Carboxyhemoglobin 1.3 0.5-1.5 % Arterial Blood Methemoglobin 0.6 0.0-1.5 % Pawan Test Modified Blood Gas Total Hemoglobin 8.10 L 12.0-16.0 g/dL Blood Gas Set Respiration Rate 22.0 Blood Gas Modality Vent - ac FiO2 % 60.0 Blood Gas Tidal Volume 400.0 Blood Gas PEEP or CPAP 8.0 Blood Gas Critical Value Read Back Yes Blood Gas Notified Whom perez Shearer agacnp Blood Gas Notified Time Blood Gas Notified By poncho Aaron rrt Troponin I High Sensitivity 89 *H </=34 ng/L POC Glucose 177 H 70-106 mg/dl Test 06/04/24 18:59 06/04/24 16:26 06/04/24 15:38 06/04/24 13:59 Range/Units B-Type Natriuretic Peptide 89.21 0-100 pg/mL Lactic Acid Level 4.3 *H 0.4-2.0 mmol/L Urine Color Yellow Yellow Urine Clarity Turbid H Clear Urine pH 5.5 5.0-9.0 Urine Specific Joshua 1.021 1.001-1.035 Urine Protein 1+ H Negative Urine Ketones Negative Negative Urine Blood 1+ H Negative /uL Urine Nitrite Negative Negative Urine Bilirubin Negative Negative Urine Urobilinogen Normal Negative mg/dL Urine Leukocyte Esterase Negative Negative /uL Urine RBC 37 0 - 4 /hpf Urine Microscopic WBC 26 H 0-5 /HPF Urine Squamous Epithelial Cells Few <5 /hpf Urine Bacteria None seen None Seen /hpf Urine Glucose 4+ H Normal mg/dL Urine Opiates Screen Neg NEGATIVE Urine Fentanyl Screen Neg NEGATIVE Urine Barbiturates Screen Neg NEGATIVE Urine Phencyclidine Screen Neg NEGATIVE Urine Amphetamines Screen Neg NEGATIVE Urine Benzodiazepines Screen Pos NEGATIVE Urine Cocaine Screen Neg NEGATIVE Urine Cannabinoids Screen Neg NEGATIVE Differential Total Cells Counted 100.0 100 Neutrophils % (Manual) 77 37.0-80.0 Band Neutrophils % (Manual) 17 Lymphocytes % (Manual) 3 L 10.0-50.0 Monocytes % (Manual) 2 0-12 Eosinophils % (Manual) 1 0-7 Basophils % (Manual) 0 0.0-2.0 Metamyelocytes % (manual) 0 Myelocytes % (Manual) 0 Promyelocytes % (Manual) 0 Blast Cells % (Manual) 0 Reactive Lymphocytes 0 Platelet Estimate Adequate Hypochromasia (manual) Slight Anisocytosis (manual) Slight Prothrombin Time 10.6 9.3-11.8 sec Prothrombin Time INR 1.00 0.9-1.15 Activated Partial Thromboplast Time 22.9 L 24.5-34.5 SEC D-Dimer, Quantitative 13.83 H 0.0-0.49 mg/L FEU Test 06/04/24 13:53 06/04/24 13:22 Range/Units Influenza Type A Antigen Negative Negative Influenza Type B Antigen Negative Negative SARS-CoV-2 Antigen (Rapid) Negative NEGATIVE Specimen Drawn By Electric Motor Analyst sandy barber Assessment/Plan Assessment/Plan Assessment Cardiopulmonary arrest Possible aspiration pneumonia Anemia Small pneumothorax Moderate pleural effusion COPD Plan Admit the patient to ICU to the hospitalist Cardiology consultation Radiology consult Rocephin/azithromycin Continue treatment per orders Total critical care time excluding procedures performed this 55 minutes. Plan discussed with: Other My Orders Orders - CIARRA SHEARER Procedure Category Date Status Time Ceftriaxone 1gm/50ml PHA 06/05/24 In Process D5w (Rocephin) 09:00 Stool Occult Blood LAB 06/04/24 Logged 18:[address] 06/04/24 Resulted Contrast 18:[address] 06/04/24 Resulted 18:36 Sodium Chloride 0.9% PHA 06/04/24 In Process 18:45 Ondansetron Hcl PHA 06/04/24 In Process (Zofran) 18:45 Echo 2d Mode Cardiac US 06/04/24 Logged DOP 18:36 Condition: Unstable KATHRINE 06/04/24 In Process 18:36 Acetaminophen Tablet PHA 06/04/24 In Process (Tylenol Tablet) 18:45 Bedrest With Bathroom KAHTRINE 06/04/24 In Process Privileg 18:36 Glucose Blood PHA 06/05/24 In Process (Accu-Chek Comfort 00:00 Insulin R (Human) PHA 06/05/24 In Process (Insulin R) 00:00 Dextrose 50% Syringe PHA 06/04/24 In Process 18:45 Pantoprazole PHA 06/05/24 In Process (Protonix) 10:00 Azithromycin 500mg/ PHA 06/04/24 In Process 250ml (Zithromax 50 18:55 Admit ADMIT 06/04/24 Transmitted 19:55 Nitroglycerin PHA 06/04/24 In Process Sublingual (Ntrostat 20:00 Morphine Sulfate PHA 06/04/24 In Process Injection 20:00 Stat Ekg For Chest KATHRINE 06/04/24 In Process Pain 19:55 Notify Of Changes KATHRINE 06/04/24 In Process From Base 19:55 Hospice Bereavement Coordinator For KATHRINE 06/04/24 In Process 24 Hours 19:55 Emergency Dysrhythmia KATHRINE 06/04/24 In Process Protocol 19:55 Rhythm Strips Once KATHRINE 06/04/24 In Process Every Shift 19:55 Oxygen By Nasal RT 06/04/24 Transmitted Cannula 19:55 Angio Head/Neck CT 06/04/24 Resulted 21:13 Abg W/ Co-Ox RT 06/04/24 Logged 23:09 Chest Xray 1 View XY 06/04/24 Resulted 23:31 Ventilator Orders RT 06/05/24 Transmitted 00:04 Abg W/ Co-Ox RT 06/05/24 Logged 04:00 *Consult CONS 06/05/24 Transmitted / 04:14 * Radiologist Consult CONS 06/05/24 Transmitted 04:14 Albuterol Medneb PHA 06/05/24 In Process (Ventolin Medneb) 04:30 Date of Service: Jun 04, 2024 Billing Provider: CIARRA SHEARER Common Visit Codes: [id number] CARE 30-74 MIN CIARRA SHEARER Jun 05, 2024 04:44
[2024-06-05] MEDS: FUROSEMIDE 20 MG/2 ML VIAL IV SCH (05:53)
[2024-06-05 09:19] LABS: Magnesium 2.3 mg/dL (1.6-2.6)
--- NOTE | 2024-06-05 09:19 | DVHINCON2 ---
Date Seen: Jun 05, 2024 Referring Physician MD Yodit Reason for Consultation Post-cardiac arrest History of Present Illness This is an 84-year-old female who presented to the emergency room via EMS with a chief complaint of cardiopulmonary arrest on 06/04/2024. At time of assessment, the patient was found chemically sedated, mechanically ventilated with 60% FiO2, and on single vasopressor. Information obtained from records and family at bedside. It appears the patient was on her way to a medical appointment and while in the car she experienced severe shortness of breath with subsequent witnessed cardiopulmonary arrest with ACLS protocol implemented by EMS including four rounds of epinephrine given PEA followed by ROSC. Per family at bedside, the patient was diagnosed with breast cancer approximally five months ago undergoing radiation therapy including a total of nine treatments and three more pending later on this week. Chemotherapy had not been initiated yet. They also report the patient was found with lung nodules suspected to be metastatic disease. Patient follows up in the outpatient setting with Cardiology, Dr. Ramirez, undergoing a cardiac catheterization without catheter based intervention 2 years ago and a transthoracic echocardiogram mid-last year. A 12 lead electrocardiogram revealed an atrial fibrillation rhythm with rapid ventricular rate at 120 bpm. Troponin level trended up to 89 ng/L. 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 Past Medical History Past medical history reviewed. No other significant than mentioned above. Past Surgical History Past Surgical history reviewed. No other significant than mentioned above. Family History Family history reviewed. Social History Per family, there is no use of illicit drugs, alcohol, or tobacco use. Allergies: Coded Allergies: NO KNOWN ALLERGIES (Unverified , 06/04/24) Home Meds Home medications reviewed. Current Medications Current Medications Medications (Trade) Dose Ordered Sig/Mickey Route PRN Reason Start Time Stop Time Status Last Admin Midazolam HCl 50 ml @ 1 mls/hr Q24H IV 06/04/24 12:45 06/04/24 23:15 Norepinephrine Bitartrate 250 ml @ 3.75 mls/hr Q24H IV 06/04/24 13:30 06/05/24 08:51 DC 06/05/24 01:15 Ceftriaxone Sodium 50 ml @ 100 mls/hr DAILY@09 IV 06/05/24 09:00 Azithromycin 250 ml @ 125 mls/hr DAILY IV 06/04/24 18:55 06/04/24 19:16 Sodium Chloride 1,000 ml @ 75 mls/hr [id number] IV 06/04/24 18:45 06/04/24 19:01 Ondansetron HCl (Zofran) 4 mg Q4HP PRN IV NAUSEA / VOMITING 06/04/24 18:45 Acetaminophen (Tylenol Tablet) 650 mg Q6HP PRN PO PAIN SCALE 1-3 OR TEMP>100.4 06/04/24 18:45 06/04/24 22:05 Diagnostic Test (Pha) (Accu-Chek Comfort Curve T) 1 strip Q6HR 06/05/24 00:00 06/05/24 05:45 Insulin Human Regular (InsuLIN R) Q6HR SC 06/05/24 00:00 06/05/24 05:55 Dextrose 50 ml UD PRN IV Blood Sugar LESS THAN 60 06/04/24 18:45 Pantoprazole Sodium (Protonix) 40 mg DAILY IV 06/05/24 10:00 Nitroglycerin (Ntrostat Sublingual) 0.4 mg Q5MINP PRN SL FOR CHEST PAIN 06/04/24 20:00 Morphine Sulfate 2 mg Q30M PRN IV FOR CHEST PAIN 06/04/24 20:00 Albuterol (Ventolin Medneb) 2.5 mg Q6HPRN PRN NEB SHORTNESS OF BREATH 06/04/24 20:00 06/05/24 04:22 DC Albuterol (Ventolin Medneb) 2.5 mg Q6HPRN PRN NEB SHORTNESS OF BREATH 06/05/24 04:30 Furosemide (Lasix Injection) 20 mg BIDD IV 06/05/24 06:00 06/05/24 05:53 Norepinephrine Bitartrate 32 mg/ Sodium Chloride 250 ml @ 0.938 mls/ hr Q24H IV 06/05/24 09:00 UNV Review of Systems Constitutional: No symptom reported Ears, Nose, & Throat: No symptom reported Eyes: No symptom reported Neurological: No symptoms reported Pulmonary/Respiratory: Cardiopulmonary arrest Cardiovascular: Cardiopulmonary arrest Gastrointestinal: No symptom reported Genitourinary: No symptom reported Musculoskeletal: No symptom reported Skin: No symptom reported Psychiatric: No symptom reported Endocrine: No symptom reported Hemotologic/Lymphatic: No symptom reported Vital Signs Vital Signs Date Time Temp Pulse Resp B/P (MAP) Pulse Ox O2 Delivery O2 Flow Rate FiO2 06/05/24 08:10 83 22 126/49 (74) 100 60 06/05/24 07:15 100.4 100.4 06/04/24 19:30 Mechanical Ventilator+ Physical Exam General Appearance: Mechanically ventilated. Withdrawn. On single-vasopressor Head Exam: Normal inspection Neck Exam: Normal inspection. Normal alignment Pulmonary/Respiratory: Mechanically ventilated with 60% FiO2. Coarse bilateral breath sounds Cardiovascular/Chest: Regular rate and rhythm. S1, S2. NSR. No murmurs. No JVD. Large hard mass to left breast area Peripheral Pulses: 2+ Radial (R). 2+ Radial (L). 2+ Pedal (R). 2+ Pedal (L) Abdominal Exam: Distended abdomen Ankle Exam: Positive ankle edema, non-pitting Lower extremities: Positive lower extremity edema, non-pitting Neuro/Mental Status: Chemically sedated. Withdrawn Thoughts/Psych: Unable to assess at this time Appearance: In no acute distress. Withdrawn. Sedated Skin Exam: Normal inspection. Normal color. Hot. Dry Labs/Diagnostic Data Labs Test 06/05/24 05:44 06/05/24 03:05 06/05/24 02:13 06/05/24 00:17 Range/Units POC Glucose 192 H 70-106 mg/dl White Blood Count 9.7 4.4-10.8 10^3/uL Red Blood Count 2.96 L 4.0-5.20 10^6/uL Hemoglobin 7.2 L 12.2-16.2 g/dL Hematocrit 24.6 L 36.0-46.0 % Mean Corpuscular Volume 83.0 # 80.0-100.0 fL Mean Corpuscular Hemoglobin 24.4 L 28.0-32.0 pg Mean Corpuscular Hemoglobin Concent 29.4 L 32.0-36.0 g/dL Red Cell Distribution Width 20.8 H 11.8-14.3 % Platelet Count 259 140-450 10^3/uL Mean Platelet Volume 8.4 6.9-10.8 fL Neutrophils (%) (Auto) 87.2 H 37.0-80.0 % Lymphocytes (%) (Auto) 4.0 L 10.0-50.0 % Monocytes (%) (Auto) 7.9 0.0-12.0 % Eosinophils (%) (Auto) 0.6 0.0-7.0 % Basophils (%) (Auto) 0.3 0.0-2.0 % Neutrophils # (Auto) 8.4 1.6-8.6 10 ^3/uL Lymphocytes # (Auto) 0.4 0.4-5.4 10 ^3/uL Monocytes # (Auto) 0.8 0-1.3 10 ^3/uL Eosinophils # (Auto) 0.1 0-0.8 10 ^3/uL Basophils # (Auto) 0 0-0.2 10 ^3/uL Nucleated Red Blood Cells 0.4 % Sodium Level 144 136-145 mmol/L Potassium Level 3.3 L 3.5-5.1 mmol/L Chloride Level 94 L 98-107 mmol/L Carbon Dioxide Level 40 H 20-31 mmol/L Anion Gap 10 5-15 Blood Urea Nitrogen 40 H 9-23 mg/dL Creatinine 1.04 H 0.550-1.02 mg/dL Glomerular Filtration Rate Calc 52 >90 mL/min BUN/Creatinine Ratio 38.5 H 10.0-20.0 Serum Glucose 215 H 74-106 mg/dL Calcium Level 9.1 8.7-10.4 mg/dL Total Bilirubin 0.4 0.2-1.0 mg/dL Aspartate Amino Transferase (AST) 50 H 13-40 U/L Alanine Aminotransferase (ALT) 28 7-40 U/L Alkaline Phosphatase 84 46-116 U/L Total Protein 5.2 L 5.7-8.2 g/dL Albumin 3.2 3.2-4.8 g/dL Blood Gas Specimen Type Arterial Blood Gas Sample Site Left radial Blood Gas Patient Temperature 37.0 Arterial Blood Date Drawn [id number] Arterial Blood pH 7.563 *H 7.350-7.450 Arterial Blood Partial Pressure CO2 44.2 32.0-45.0 mmHg Arterial Blood Partial Pressure O2 71.7 L 83.0-108.0 mmHg Arterial Blood HCO3 39.0 H 21.0-28.0 mmol/L Arterial Blood Oxygen Saturation 94.2 94.0-98.0 % Arterial Blood Base Excess 15.3 H -2.0-3.0 mmol/L Arterial Blood Oxyhemoglobin 92.4 L 94.0-98.0 % Arterial Blood Carboxyhemoglobin 1.3 0.5-1.5 % Arterial Blood Methemoglobin 0.6 0.0-1.5 % Pawan Test Modified Blood Gas Total Hemoglobin 8.10 L 12.0-16.0 g/dL Blood Gas Set Respiration Rate 22.0 Blood Gas Modality Vent - ac FiO2 % 60.0 Blood Gas Tidal Volume 400.0 Blood Gas PEEP or CPAP 8.0 Blood Gas Critical Value Read Back Yes Blood Gas Notified Whom perez [place] agacnp Blood Gas Notified Time [id number] Blood Gas Notified By poncho Aaron rrt Troponin I High Sensitivity 89 *H </=34 ng/L Test 06/04/24 18:59 06/04/24 16:26 06/04/24 15:38 06/04/24 13:59 Range/Units B-Type Natriuretic Peptide 89.21 0-100 pg/mL Lactic Acid Level 4.3 *H 0.4-2.0 mmol/L Urine Color Yellow Yellow Urine Clarity Turbid H Clear Urine pH 5.5 5.0-9.0 Urine Specific [place] 1.021 1.001-1.035 Urine Protein 1+ H Negative Urine Ketones Negative Negative Urine Blood 1+ H Negative /uL Urine Nitrite Negative Negative Urine Bilirubin Negative Negative Urine Urobilinogen Normal Negative mg/dL Urine Leukocyte Esterase Negative Negative /uL Urine RBC 37 0 - 4 /hpf Urine Microscopic WBC 26 H 0-5 /HPF Urine Squamous Epithelial Cells Few <5 /hpf Urine Bacteria None seen None Seen /hpf Urine Glucose 4+ H Normal mg/dL Urine Opiates Screen Neg NEGATIVE Urine Fentanyl Screen Neg NEGATIVE Urine Barbiturates Screen Neg NEGATIVE Urine Phencyclidine Screen Neg NEGATIVE Urine Amphetamines Screen Neg NEGATIVE Urine Benzodiazepines Screen Pos NEGATIVE Urine Cocaine Screen Neg NEGATIVE Urine Cannabinoids Screen Neg NEGATIVE Differential Total Cells Counted 100.0 100 Neutrophils % (Manual) 77 37.0-80.0 Band Neutrophils % (Manual) 17 Lymphocytes % (Manual) 3 L 10.0-50.0 Monocytes % (Manual) 2 0-12 Eosinophils % (Manual) 1 0-7 Basophils % (Manual) 0 0.0-2.0 Metamyelocytes % (manual) 0 Myelocytes % (Manual) 0 Promyelocytes % (Manual) 0 Blast Cells % (Manual) 0 Reactive Lymphocytes 0 Platelet Estimate Adequate Hypochromasia (manual) Slight Anisocytosis (manual) Slight Prothrombin Time 10.6 9.3-11.8 sec Prothrombin Time INR 1.00 0.9-1.15 Activated Partial Thromboplast Time 22.9 L 24.5-34.5 SEC D-Dimer, Quantitative 13.83 H 0.0-0.49 mg/L FEU Test 06/04/24 13:53 06/04/24 13:22 Range/Units Influenza Type A Antigen Negative Negative Influenza Type B Antigen Negative Negative SARS-CoV-2 Antigen (Rapid) Negative NEGATIVE Specimen Drawn By [employer] Controls Operator [place] Assessment Cardiopulmonary arrest with ROSC Left breast CA with suspected metastatic disease Transient atrial fibrillation, now NSR Acute on chronic unspecified CHF Pneumothorax, small left apical NSTEMI, likely Type II secondary to above Hx bleeding GI ulcer Severe anemia COPD with O2 dependance Obesity Plan/Recommendation (Dr. Landa) We will continue further cardiac evaluation with a transthoracic echocardiogram to evaluate cardiac function. In the meantime, continue vasopressor for hemodynamic support, preload reduction, monitor H&H closely, and obtain a bilateral lower extremity venous US to rule out DVT. Continue Pulmonology and Radiology recommendations. Monitor ECG changes and notify. DVT/VTE prophylaxis with SCDs if negative DVT. Thank you for allowing us to participate in this patient's care. Please call if you have any questions or concerns. Critical care time: 40 min. This medical document was created using an electronic medical record system with voice recognition software and computerized dictation system. Although this document has been carefully reviewed, there might still be some phonetic and typographical errors. Occasional wrong-word or ``sound-alike substitutions may have occurred due to the inherent limitations of voice recognition software. These areas are purely typographical due to imperfections of the software programs and do not reflect any compromise in the patient's medical care. Please read the chart carefully and recognize, using context, where these substitutions have occurred. Plan discussed with: Daughter, Son, Other NYHA Physical activity limitations: NA Date of Service: Jun 05, 2024 Billing Provider: NUNO CAO Cardiology Common Codes: 34297-ZTZCCTFP CARE 30-74 MIN NUNO CAO Jun 05, 2024 09:19
[2024-06-05] MEDS: cefTRIAXone 1GM/50ML D5W 50 ML IV SCH (09:33)
[2024-06-05] MEDS: PANTOPRAZOLE 40 MG/10 ML VIAL INJ IV SCH ×2 (09:33→21:47)
--- NOTE | 2024-06-05 09:43 | ECG ---
[facility] Test Date: 2024-06-04 Test Time: 15:27:53 Pat Name: MALACHI GAMINO Department: ER Room: [address] [place] [address] A Gender: F Director Of Business Operations: DOMINICK : 1940 Requested By: LENNIE FLORES Order Number: [id number] Reading MD: Milton Orourke Measurements Intervals [place] Rate: 120 P: 0 KS: 0 QRS: 30 QRSD: 86 T: 36 QT: 297 QTc: 420 Interpretive Statements Atrial fibrillation Ventricular premature complex Low voltage, precordial leads Electronically Signed On 06-07-2024 8:51:04 PST by Milton Orourke Please click the below link to view image of tracing.
[2024-06-05] MEDS: POTASSIUM CHL 20MEQ/100ML 100 ML IV ONE (09:47)
--- NOTE | 2024-06-05 10:03 | DVH ---
BILATERAL LOWER EXTREMITY VENOUS DOPPLER CLINICAL HISTORY: Edema, elevated d-dimer Technique: Duplex Doppler evaluation of the deep venous systems of both lower extremities from the co mmon femoral veins to the popliteal veins including color Doppler and spectral/pulsed waveform analys is was performed. COMPARISON: None FINDINGS: The right and left common femoral, superficial femoral, popliteal, posterior tibial and peroneal vei ns appear patent with normal augmentation, phasicity, compressibility and color-flow. There is a Bake r's cyst in the left popliteal fossa measuring 5.8 x 2.4 cm. IMPRESSION: 1. There is no sonographic evidence for DVT in the lower extremities. HS:Y
[2024-06-05] MEDS: NOREPINEPHRINE BITARTRATE 32 MG in SODIUM CHL 0.9% 218 ML IV SCH (12:16)
--- NOTE | 2024-06-05 12:23 | DVHSR ---
APPROVED REPORT EXAM: LIMITED Two-dimensional and M-mode echocardiogram with Doppler and color Doppler. Blood Pressure: 116/51 mmHg INDICATION Cardiac arrest RISK FACTORS Obesity: Height: 5'4", Weight: 189 DIMENSIONS LVDd4.9 (3.8-5.7cm)LA (2D) (1.9-4.0cm)Aortic Root3.3 (2.0-3.7cm) LVDs3.3 (2.5-4.0cm)LA (MM) (1.9-4.0cm)Aortic Cusp Exc1.5 (1.5-2.0cm) EF (%) 60.0 (55-70%)Rt. Atrium (1.9-4.0cm)Asc. Aorta cm IVSd1.1 (0.7-1.1cm)RV (D) (1.8-2.4cm) PWd1.1 (0.7-1.1cm) Mitral Valve MitralMitral Stenosis E/A ratio0.02D MVAcm2 Aortic Valve Aortic ValveAortic Stenosis LVOT Diameter1.8 (1.8-2.4cm)Doppler AVAcm2 Tricuspid Valve TR Velocity3.70m/s [id number] LEFT VENTRICLE The left ventricle is of normal size. Wall thickness is normal. Ejection fraction is estimated at 6 0-65%. There is no gross wall motion abnormalities but endocardial definition is suboptimal. Diasto lic function is not well assessed. RIGHT VENTRICLE The right ventricle is of normal size and systolic function. There is possible right ventricular hyp ertrophy. ATRIA Both atria are likely mildly dilated. Both atria are not well visualized. MITRAL VALVE There is mild mitral annular calcification. No significant regurgitation or stenosis. PULMONIC VALVE Not visualized. TRICUSPID VALVE Normal structure and function. There is mild tricuspid regurgitation. PA systolic pressure is estim ated at 60-65 mm Hg. AORTIC VALVE Not well visualized. There is mild insufficiency. No evidence of significant stenosis. GREAT VESSELS The aortic root is of normal size. Ascending aorta isn't visualized. PERICARDIAL EFFUSION No significant effusion. IVC is dilated in size. Other Information Quality : LimitedRhythm : Technically limited study due to body habitus and on vent. Conclusion The study is technically limited. Normal left ventricular size and systolic function. Ejection fraction is estimated at 60-65%. Normal right ventricular size and systolic function. No evidence of hemodynamically significant valvular disease. PA systolic pressure is estimated at 60-65 mm Hg. No significant pericardial effusion.
[2024-06-05] MEDS ORDERED: VANCOMYCIN PER PHARMACY 0 MG IV SCH (13:15)
--- NOTE | 2024-06-05 13:50 | DVHPNRES ---
Progress Note Date Seen: Jun 05, 2024 Resident Creating Document: DIONNA VIRAMONTES RESIDENT Medical Necessity Reason Pt with a Central, PICC or Fol: Yes The following are medically ne: Central Line, Goldstein Catheter Subjective Review of Systems Shu Royal Is a 84 years old female with a PMH of CHF, DLD, type 2 DM, COPD on home oxygen, triple negative breast cancer, chronic GI bleed, morbid obesity brought by EMS to ED due to cardiopulmonary arrest on 06/04/2024. Per family patient has been more shortness of breath since 1 week which is aggravated by with a slight exertion, went to visit pulmonology on Wednesday, and Wednesday the plan to take patient to [place], while going to [place] in car she experienced severe shortness of breath with subsequent witnessed cardiopulmonary arrest with ACLS protocol implemented by EMS including four rounds of epinephrine given PEA followed by ROSC. Per family at bedside, the patient was diagnosed with breast cancer approximally five months ago undergoing radiation therapy including a total of nine treatments and three more pending later on this week. Chemotherapy had not been initiated yet. Patient seen and examined at the bedside. Unable to obtain ROS due to patient's clinical status. Patient is currently intubated, sedated and on mechanical ventilation, family at bedside. currently on 2 vasopressors Levophed and norepinephrine for pressure support. Changes from previous H/P or p: No Changes Objective vital signs Vital Sign Date Time Temp Pulse Resp B/P (MAP) Pulse Ox O2 Delivery O2 Flow Rate FiO2 06/05/24 12:14 83 22 114/48 (70) 100 45 06/05/24 11:51 Mechanical Ventilator+ 0 06/05/24 10:02 99.9 99.9 Total Intake and Output 06/04/24 06/04/24 06/05/24 15:00 23:00 07:00 Intake Total 531.435 ml 775.6850 ml 1025.1400 ml Output Total 50 ml Balance 531.435 ml 725.6850 ml 1025.1400 ml medications Current Medications Medications Dose Ordered Sig/Mickey Route Start Time Stop Time Status Last Admin Dose Admin Midazolam HCl 50 ml @ 1 mls/hr Q24H IV 06/04/24 12:45 06/04/24 23:15 6 MLS/HR Azithromycin 250 ml @ 125 mls/hr DAILY IV 06/04/24 18:55 06/05/24 09:48 125 MLS/HR Acetaminophen 650 mg Q6HP PRN PO 06/04/24 18:45 06/04/24 22:05 650 MG Diagnostic Test (Pha) 1 strip Q6HR 06/05/24 00:00 06/05/24 11:29 1 STRIP Insulin Human Regular Q6HR SC 06/05/24 00:00 06/05/24 11:34 3 UNITS Dextrose 50 ml UD PRN IV 06/04/24 18:45 Albuterol 2.5 mg Q6HPRN PRN NEB 06/05/24 04:30 Norepinephrine Bitartrate 32 mg/ Sodium Chloride 250 ml @ 0.938 mls/ hr Q24H IV 06/05/24 09:00 06/05/24 12:16 7.5 MLS/HR Pantoprazole Sodium 40 mg BID IV 06/05/24 22:00 Vancomycin HCl 0 ml @ 0 mls/hr UD IV 06/05/24 13:15 UNV Piperacillin Sod/ Tazobactam Sod 100 ml @ 25 mls/hr Q8HR IV 06/05/24 22:00 Examination Pt is lying on bed General Appearance: Intubated, sedated, on MV with, RR 22, VT 400, FiO2 45%, peep 8 HEENT: Atraumatic, Mucous membranes moist/pink Respiratory: Clear to auscultation, but decreased sounds Cardiovascular: Regular rate, Normal S1, Normal S2, Abdominal: slightly distended. Active bowel sounds, Soft, Extremities: 2+ edema in BLE, bruises, right femoral line intact : Goldstein catheter intact Skin: No Significant rash, except past surgical scars Neuro: diminished pupillary reflex Nurse was there as sharperone during examination laboratory and microbiology Laboratory Tests 06/05/24 03:05 Test 06/05/24 03:05 Range/Units Serum Glucose 215 H 74-106 mg/dL Microbiology Date/Time Source Procedure Growth Status 06/04/24 15:38 Urine - Goldstein [place] Urine Culture - Preliminary Resulted 06/04/24 12:20 Sputum Gram Stain Pending Resulted 06/04/24 12:20 Sputum Respiratory Culture - Preliminary Resulted Labs and/or images reviewed: Labs reviewed by me, Image(s) reviewed by me Problem List/Assessment/Plan Problem List/Assessment/Plan NEUROLOGY # ? anoxic or hypoxic encephalopathy - CT head and neck showed no acute changes, no large vessel occlusion - currently intubated, monitoring CARDIOLOGY # Cardiopulmonary arrest S/p ROSC # ? Acute on Chronic CHF likely diastolic # Type II NSTEMI likely due to above # Afib, RVR with a secondary hypercoagulable state # shock likely septic likely due to pneumonia - BNP normal, troponins are elevated - EKG showed AFib with a RVR - Echocardiogram, 60-65% - lock tender on board - currently intubated, on mechanical ventilation - currently on vancomycin, Zosyn 06/05 - DC azithromycin 06/05 - strict I and Os - continue Lasix 20 mg IV RESPIRATORY # acute on chronic hypoxic respiratory failure likely due to PNA # acute Gram-positive are negative bacterial PNA/? MRSA or Pseudomonas PNA # septic shock likely due to pneumonia # ? COPD exacerbation - evident on CXR, CT chest - continuously monitoring with CXR and ABG - currently ICU status - currently intubated, on mechanical ventilation - currently on vancomycin, Zosyn 06/05 - DC azithromycin 06/05 - RR 22, VT 400, FiO2 45%, peep 8 ( planning to change rate to 20) - ordered pancultures # Left pleural effusion # small left pneumothorax # Multiple pulmonary nodules in the right lung, rule out metastasis - CT chest showed multiple pulmonary nodules, left pleural effusion, left pneumothorax - IR on board GI/LIVER # ? GI bleed - ordered stool occult blood - patient is currently anemic transfuse if needed # Morbid obesity KIDNEY//METABOLIC # Hypokalemia - Repleting - Monitor lab - correct electrolyte imbalance - strict I&O HEME-ONC # normocytic hypochromic anemia # likely anemia of chronic disease due to of neoplasm - continuously monitored lab - consider transfusion if needed - consider iron panel # Left triple negative breast cancer with ongoing radiotherapy - currently following with Anshu Conner, finished 9 sessions of radio and 5 more sessions pending - suspecting metastasis, further workup needed # Multiple pulmonary nodules rt sided likely due to questionable mets - evident on CT MSK # osteoarthritis - conservative management # rule out DVT - venous scan negative # Wheelchiar bound -fall precautions ID # septic shock likely due to pneumonia - ordered pancultures - currently ICU status - currently intubated, on mechanical ventilation - currently on vancomycin, Zosyn 06/05 - DC azithromycin 06/05 SKIN # Lacerated wound on right leg calf - wound consult LINES Right femoral vein catheter 0n 06/04 Goldstein catheter 06/04 DRIPS Versed Norepinephrine Levophed VTE PPX: hold Lovenox due to suspected GI bleed PUD PPX: hold Jevity due to suspected GI Goals of care has been discussed with the daughter for more than 27 minutes, full code status for now(no more CPR, defibrillation if patient coded) Critical care time including chart review, discussing with the patient's family excluding procedures: 118 minutes Patient's status updated to Daughter on bedside Case discussed with Dr. Brooks Plan discussed with: Daughter My Orders My Orders Orders - DIONNA VIRAMONTES Procedure Category Date Status Time Pantoprazole PHA 06/05/24 In Process (Protonix) 22:00 Vancomycin Per PHA 06/05/24 Pending Pharmacy 13:15 Ventilator Orders RT 06/05/24 Transmitted 13:13 Ventilator Orders RT 06/05/24 Transmitted 13:13 Piperacillin-Tazo PHA 06/05/24 In Process 4.5gm (Zosyn 4.5gm/100 13:15 Piperacillin-Tazob PHA 06/05/24 In Process 3.375gm (Zosyn 3.375g 22:00 Vancomycin PHA 06/05/24 In Process 1.25gm/250ml 14:30 Date of Service: Jun 05, 2024 Billing Provider: CIARRA BROOKS MD Common Visit Codes: 14880-[id number] CARE 30-74 MIN, [id number] CARE-EACH +30MIN (X2) DIONNA VIRAMONTES Jun 05, 2024 13:50 CIARRA BROOKS MD Jun 06, 2024 15:10
[2024-06-05] MEDS ORDERED: VANCOMYCIN 1GM/250ML KIT 250 ML IV ONE (14:45)
[2024-06-05] MEDS: VANCOMYCIN 1.25GM/250ML 250 ML IV ONE (15:01)
[2024-06-05] MEDS: PIPERACILLIN-TAZO 4.5GM 100 ML IV ONE (15:02)
[2024-06-05] MEDS: acetaZOLAMIDE SODIUM 500 MG VL IV ONE (15:18)
[2024-06-05 18:26] LABS: Base Excess 15.9 mmol/L (-2.0-3.0)
[2024-06-05 18:36] LABS: % Iron Saturation 2.7 % (15-50)
[2024-06-05 19:00] LABS: Ferritin 67.4 ng/mL (10-291)
[2024-06-05 19:40] LABS: Folate (Folic Acid) 34.21 ng/mL (>5.38)
[2024-06-05] MEDS: PIPERACILLIN-TAZOB 3.375GM 100 ML IV SCH (21:48)
[2024-06-06] VITALS (56 sets, daily range): BP systolic 85–127; BP diastolic 26–63; PULSE 29–102; RESP 13–20; TEMP 99–100.2; O2SAT 97–100
[2024-06-06 05:30] LABS: Basophils # (auto) 0 10 ^3/uL (0-0.2); Eosinophils # (auto) 0.1 10 ^3/uL (0-0.8); Eosinophils % (auto) 0.7 % (0.0-7.0); Lymphocytes # (auto) 0.3 10 ^3/uL (0.4-5.4); Mean Corpuscular Hemoglobin 25.2 pg (28.0-32.0); Neutrophils % (auto) 90.8 % (37.0-80.0); Nucleated Red Blood Cells % 0.1 %
[2024-06-06 05:32] LABS: Basophils % (auto) 0.2 % (0.0-2.0); Hematocrit 28.4 % (36.0-46.0); Hemoglobin 8.5 g/dL (12.2-16.2); Lymphocytes % (auto) 2.6 % (10.0-50.0); Mean Corpuscular Hgb Conc. 30.1 g/dL (32.0-36.0); Mean Corpuscular Volume 83.8 fL (80.0-100.0); Monocytes # (auto) 0.6 10 ^3/uL (0-1.3); Monocytes % (auto) 5.7 % (0.0-12.0); Neutrophils # (auto) 9.2 10 ^3/uL (1.6-8.6); Platelet Count (auto) 210 10^3/uL (140-450); Red Blood Cells 3.39 10^6/uL (4.0-5.20); White Blood Cell 10.1 10^3/uL (4.4-10.8)
[2024-06-06 05:35] LABS: Red Cell Distribution Width 20.5 % (11.8-14.3)
[2024-06-06 05:48] LABS: Alanine Aminotransferase 24 U/L (7-40); Alkaline Phosphatase 95 U/L (46-116); Anion Gap 10 (5-15); BUN/Creatinine Ratio 38.9 (10.0-20.0); Calcium 8.7 mg/dL (8.7-10.4); Chloride 99 mmol/L (98-107); Magnesium 2.3 mg/dL (1.6-2.6); Sodium 143 mmol/L (136-145)
[2024-06-06 05:49] LABS: Bilirubin, Total 0.6 mg/dL (0.2-1.0)
[2024-06-06 05:51] LABS: Aspartate Aminotransferase 94 U/L (13-40); Blood Urea Nitrogen 35 mg/dL (9-23); Carbon Dioxide 34 mmol/L (20-31); Glucose 168 mg/dL (74-106); Potassium 2.7 mmol/L (3.5-5.1); Total Protein 5.2 g/dL (5.7-8.2)
--- NOTE | 2024-06-06 06:13 | DVH ---
EXAM: XR Chest, 1 View CLINICAL INDICATION: pna TECHNIQUE: Frontal view of the chest. COMPARISON: XY CHEST XRAY 1 VIEW on DOS: 06/05/24, XY CHEST XRAY 1 VIEW on DOS: 06/04/24, XY CHEST PO RTABLE on DOS: 06/04/24 FINDINGS: LUNGS AND PLEURAL SPACES: See below. HEART: Cardiomegaly with pulmonary congestion and edema. Superimposed pneumonia cannot be excluded. MEDIASTINUM: Unremarkable. Normal mediastinal contour. BONES/JOINTS: Unremarkable. No acute fracture. TUBES, LINES AND DEVICES: The endotracheal tube (ETT) is in satisfactory position. UPPER ABDOMEN: Intact stomach. OTHER FINDINGS: . IMPRESSION: Cardiomegaly with pulmonary congestion and edema. Superimposed pneumonia cannot be excluded.
[2024-06-06] MEDS: POTASSIUM CHL 20MEQ/100ML 100 ML IV SCH (06:43)
[2024-06-06 07:57] LABS: Base Excess 9.4 mmol/L (-2.0-3.0)
--- NOTE | 2024-06-06 08:18 | ECG ---
[facility] Test Date: 2024-06-05 Test Time: 09:28:19 Pat Name: MALACHI GAMINO Department: ER Room: [address] [place] [address] A Gender: F Detonator Maker: ALEKS : 1940 Requested By: NUNO CAO Order Number: [id number] Reading MD: Milton Orourke Measurements Intervals [place] Rate: 88 P: 103 IN: 138 QRS: 54 QRSD: 94 T: 81 QT: 466 QTc: 564 Interpretive Statements Sinus rhythm Abnormal R-wave progression, early transition Prolonged QT interval Electronically Signed On 06-07-2024 8:52:24 PST by Milton Orourke Please click the below link to view image of tracing.
--- NOTE | 2024-06-06 08:59 | DVHPN2 ---
Consult Progress Note Date Seen: Jun 06, 2024 Subjective Other Systems: No overnight cardiac events reported Objective vital signs Vital Sign Date Time Temp Pulse Resp B/P (MAP) Pulse Ox O2 Delivery O2 Flow Rate FiO2 06/06/24 08:25 90 20 121/55 (77) 98 30 06/06/24 06:30 99.9 99.9 06/06/24 06:00 Mechanical Ventilator+ 0 Total Intake and Output 06/05/24 06/05/24 06/06/24 15:00 23:00 07:00 Intake Total 954.75 ml 691.915 ml 130.002 ml Output Total 650 ml 670 ml Balance 954.75 ml 41.915 ml -539.998 ml medications Current Medications Medications Dose Ordered Sig/Mickey Route Start Time Stop Time Status Last Admin Dose Admin Midazolam HCl 50 ml @ 1 mls/hr Q24H IV 06/04/24 12:45 06/04/24 23:15 6 MLS/HR Acetaminophen 650 mg Q6HP PRN PO 06/04/24 18:45 06/04/24 22:05 650 MG Diagnostic Test (Pha) 1 strip Q6HR 06/05/24 00:00 06/06/24 05:49 1 STRIP Insulin Human Regular Q6HR SC 06/05/24 00:00 06/06/24 05:52 2 UNITS Dextrose 50 ml UD PRN IV 06/04/24 18:45 Albuterol 2.5 mg Q6HPRN PRN NEB 06/05/24 04:30 Norepinephrine Bitartrate 32 mg/ Sodium Chloride 250 ml @ 0.938 mls/ hr Q24H IV 06/05/24 09:00 06/05/24 12:16 7.5 MLS/HR Pantoprazole Sodium 40 mg BID IV 06/05/24 22:00 06/05/24 21:47 40 MG Vancomycin HCl 0 ml @ 0 mls/hr UD IV 06/05/24 13:15 Piperacillin Sod/ Tazobactam Sod 100 ml @ 25 mls/hr Q8HR IV 06/05/24 22:00 06/06/24 05:27 25 MLS/HR Potassium Chloride 100 ml @ 50 mls/hr Q2H IV 06/06/24 06:45 06/06/24 12:44 06/06/24 06:43 50 MLS/HR Examination: LUNGS:Abnormal (Mechanically ventilated), CVS:Abnormal (On single- vasopressor), MSK:Abnormal (LUE edema), NEURO:Abnormal (Chemically sedated) laboratory and microbiology Laboratory Tests 06/06/24 05:19 Test 06/06/24 05:19 Range/Units Serum Glucose 168 H 74-106 mg/dL Problem List/Assessment/Plan Problem List/Assessment/Plan Cardiopulmonary arrest with ROSC Left breast CA with suspected metastatic disease Transient atrial fibrillation, now NSR Acute on chronic decompensated HFpEF Pulmonary hypertension, severe Pneumothorax, small left apical NSTEMI, likely Type II secondary to above Hx bleeding GI ulcer Severe anemia s/p PRBCs x 1 unit COPD with O2 dependance Obesity Plan/Recommendation (Dr. Orourke) Transthoracic echocardiogram revealed EF 60-65% with RVSP 60-65 mmHg. Continue vasopressor for hemodynamic support, monitor H&H closely and transfuse as necessary. Obtain a left upper extremity venous US to rule out DVT. Replete electrolytes as necessary. Monitor ECG changes and notify. DVT/VTE prophylaxis with SCDs. Thank you for allowing us to participate in this patient's care. Please call if you have any questions or concerns. Critical care time: 30 min. This medical document was created using an electronic medical record system with voice recognition software and computerized dictation system. Although this document has been carefully reviewed, there might still be some phonetic and typographical errors. Occasional wrong-word or ``sound-alike substitutions may have occurred due to the inherent limitations of voice recognition software. These areas are purely typographical due to imperfections of the software programs and do not reflect any compromise in the patient's medical care. Please read the chart carefully and recognize, using context, where these substitutions have occurred. Plan discussed with: Other Date of Service: Jun 06, 2024 Billing Provider: NUNO CAO Cardiology Common Codes: [id number] CARE 30-74 MIN NUNO CAO Jun 06, 2024 08:59
[2024-06-06] MEDS: ALBUTEROL SULF 2.5 MG/0.5ML(0.5%) NEB SOLN NEB PRN (09:21)
--- NOTE | 2024-06-06 10:02 | DVH ---
Left UPPER EXTREMITY VENOUS DOPPLER CLINICAL HISTORY: R/O DVT TECHNIQUE: Left upper extremity venous Doppler study was performed. Comparison: None FINDINGS: There is thrombus seen in the left cephalic vein. The left internal jugular, subclavian, axillary, br achial, basilic, radial and ulnar veins appear patent with normal augmentation, phasicity, compressi bility and color-flow. IMPRESSION: 1. Thrombus seen in the left cephalic vein. HS:Y
[2024-06-06] MEDS: VANCOMYCIN 1GM/250ML KIT 250 ML IV SCH (11:00)
[2024-06-06] MEDS: MORPHINE SULFATE INJ 2 MG/ml SYRG IV PRN (11:48)
[2024-06-06] MEDS: LORazepam 2MG/ML-1ML VIAL IV PRN (11:52)
--- NOTE | 2024-06-06 17:50 | DVHPNRES ---
Progress Note Date Seen: Jun 06, 2024 Resident Creating Document: DIONNA VIRAMONTES RESIDENT Medical Necessity Reason Pt with a Central, PICC or Fol: Yes The following are medically ne: Central Line, Goldstein Catheter Subjective Review of Systems Patient seen and examined at the bedside. Unable to obtain ROS due to patient's clinical status. Patient is currently intubated, sedated and on mechanical ventilation, family at bedside. currently on 2 vasopressors Levophed and norepinephrine for pressure support. Changes from previous H/P or p: No Changes Objective vital signs Vital Sign Date Time Temp Pulse Resp B/P (MAP) Pulse Ox O2 Delivery O2 Flow Rate FiO2 06/06/24 12:01 46 06/06/24 11:48 17 117/59 06/06/24 10:00 35 06/06/24 10:00 100 Mechanical Ventilator+ 0 06/06/24 06:30 99.9 99.9 Total Intake and Output 06/05/24 06/05/24 06/06/24 15:00 23:00 07:00 Intake Total 954.75 ml 691.915 ml 209.690 ml Output Total 650 ml 670 ml Balance 954.75 ml 41.915 ml -460.310 ml medications Current Medications Medications Dose Ordered Sig/Mickey Route Start Time Stop Time Status Last Admin Dose Admin Midazolam HCl 50 ml @ 1 mls/hr Q24H IV 06/04/24 12:45 06/04/24 23:15 6 MLS/HR Acetaminophen 650 mg Q6HP PRN PO 06/04/24 18:45 06/04/24 22:05 650 MG Diagnostic Test (Pha) 1 strip Q6HR 06/05/24 00:00 06/06/24 05:49 1 STRIP Insulin Human Regular Q6HR SC 06/05/24 00:00 06/06/24 05:52 2 UNITS Dextrose 50 ml UD PRN IV 06/04/24 18:45 Albuterol 2.5 mg Q6HPRN PRN NEB 06/05/24 04:30 06/06/24 09:21 2.5 MG Norepinephrine Bitartrate 32 mg/ Sodium Chloride 250 ml @ 0.938 mls/ hr Q24H IV 06/05/24 09:00 06/05/24 12:16 7.5 MLS/HR Pantoprazole Sodium 40 mg BID IV 06/05/24 22:00 06/05/24 21:47 40 MG Vancomycin HCl 0 ml @ 0 mls/hr UD IV 06/05/24 13:15 Piperacillin Sod/ Tazobactam Sod 100 ml @ 25 mls/hr Q8HR IV 06/05/24 22:00 06/06/24 05:27 25 MLS/HR Vancomycin HCl 250 ml @ 250 mls/hr DAILY IV 06/06/24 11:00 Lorazepam 1 mg Q1HP PRN IV 06/06/24 11:00 06/06/24 11:52 1 MG Morphine Sulfate 1 mg Q1HP PRN IV 06/06/24 11:00 06/06/24 11:48 1 MG Examination Pt is lying on bed General Appearance: Intubated, sedated, on MV with, RR 22, VT 400, FiO2 45%, peep 8 HEENT: Atraumatic, Mucous membranes moist/pink Respiratory: Clear to auscultation, but decreased sounds Cardiovascular: Regular rate, Normal S1, Normal S2, Abdominal: slightly distended. Active bowel sounds, Soft, Extremities: 2+ edema in BLE, bruises, right femoral line intact : Goldstein catheter intact Skin: No Significant rash, except past surgical scars Neuro: diminished pupillary reflex Nurse was there as sharperone during examination laboratory and microbiology Laboratory Tests 06/06/24 05:19 Test 06/06/24 05:19 Range/Units Serum Glucose 168 H 74-106 mg/dL Microbiology Date/Time Source Procedure Growth Status 06/05/24 17:20 Nose MRSA Screen - Final Complete 06/05/24 09:57 Blood Blood Culture - Preliminary NO GROWTH AFTER 24 HOURS OF INCUBATION. Resulted 06/04/24 15:38 Urine - Goldstein [place] Urine Culture - Preliminary Resulted 06/04/24 12:20 Sputum Gram Stain Pending Resulted 06/04/24 12:20 Sputum Respiratory Culture - Preliminary Resulted Labs and/or images reviewed: Labs reviewed by me, Image(s) reviewed by me Problem List/Assessment/Plan Problem List/Assessment/Plan NEUROLOGY # ? anoxic or hypoxic encephalopathy - CT head and neck showed no acute changes, no large vessel occlusion - currently intubated, monitoring CARDIOLOGY # Cardiopulmonary arrest S/p ROSC # ? Acute on Chronic CHF likely diastolic # Type II NSTEMI likely due to above # Afib, RVR with a secondary hypercoagulable state # shock likely septic likely due to pneumonia - BNP normal, troponins are elevated - EKG showed AFib with a RVR - Echocardiogram, 60-65% - escrow secretary on board - currently intubated, on mechanical ventilation - currently on vancomycin, Zosyn 06/05 - DC azithromycin 06/05 - strict I and Os - continue Lasix 20 mg IV RESPIRATORY # acute on chronic hypoxic respiratory failure likely due to PNA # acute Gram-positive are negative bacterial PNA/? MRSA or Pseudomonas PNA # septic shock likely due to pneumonia # ? COPD exacerbation - evident on CXR, CT chest - continuously monitoring with CXR and ABG - currently ICU status - currently intubated, on mechanical ventilation - currently on vancomycin, Zosyn 06/05 - DC azithromycin 06/05 - RR 22, VT 400, FiO2 45%, peep 8 ( planning to change rate to 20) - ordered pancultures # Left pleural effusion # small left pneumothorax # Multiple pulmonary nodules in the right lung, rule out metastasis - CT chest showed multiple pulmonary nodules, left pleural effusion, left pneumothorax - IR on board GI/LIVER # ? GI bleed - ordered stool occult blood - patient is currently anemic transfuse if needed # Morbid obesity KIDNEY//METABOLIC # Hypokalemia - Repleting - Monitor lab - correct electrolyte imbalance - strict I&O HEME-ONC # normocytic hypochromic anemia # likely anemia of chronic disease due to of neoplasm - continuously monitored lab - consider transfusion if needed - consider iron panel # Left triple negative breast cancer with ongoing radiotherapy - currently following with Anshu Conner, finished 9 sessions of radio and 5 more sessions pending - suspecting metastasis, further workup needed # Multiple pulmonary nodules rt sided likely due to questionable mets - evident on CT MSK # osteoarthritis - conservative management # left cephalic vein DVT - venous scan positive # Wheelchiar bound -fall precautions ID # septic shock likely due to pneumonia - ordered pancultures - currently ICU status - currently intubated, on mechanical ventilation - currently on vancomycin, Zosyn 06/05 - DC azithromycin 06/05 SKIN # Lacerated wound on right leg calf - wound consult LINES Right femoral vein catheter 0n 06/04 Goldstein catheter 06/04 DRIPS Norepinephrine Levophed VTE PPX: hold Lovenox due to suspected GI bleed PUD PPX: hold Jevity due to suspected GI Goals of care has been discussed with the daughter for more than 27 minutes, full code status for now(no more CPR, defibrillation if patient coded)- 06/05 Today again discussed goals of care with daughter Catalina, family, they decided to only comfort measures, and for terminal wean, Extubated. Critical care time including chart review, discussing with the patient's family excluding procedures: 118 minutes Patient's status updated to Daughter on bedside Case discussed with Dr. Gonzalez Plan discussed with: Daughter My Orders My Orders Orders - DIONNA VIRAMONTES Procedure Category Date Status Time Vancomycin 1gm/250ml PHA 06/06/24 In Process Kit 11:00 Vancomycin Per KATHRINE 06/06/24 In Process Pharmacy Protoc 11:00 Basic Metabolic Panel LAB 06/07/24 Verified 04:00 Vancomycin,Trough LAB 06/09/24 Verified 10:00 Code Status CODE 06/06/24 Transmitted 10:47 Rt To Terminal Wean Pt ORDERS 06/06/24 Transmitted 10:47 Lorazepam 2mg/Ml Inj PHA 06/06/24 In Process (Ativan Inj) 11:00 Morphine Sulfate PHA 06/06/24 In Process Injection 11:00 DIONNA VIRAMONTES RESIDENT Jun 06, 2024 17:50
--- NOTE | 2024-06-06 17:53 | DVHDS2 ---
Summary Date of Admission Jun 04, 2024 at 19:55 Date and Time of Expiration: Jun 06, 2024 12:32 Reason for Admission: Cardiac arrest Labs/Diagnostic Data: Laboratory Results Test 06/06/24 07:50 06/06/24 05:48 06/06/24 05:19 06/05/24 10:45 Blood Gas Specimen Type Arterial Blood Gas Sample Site Right radial Blood Gas Patient Temperature 37.0 Arterial Blood Date Drawn [id number] Arterial Blood pH 7.473 (7.350-7.450) Arterial Blood Partial Pressure CO2 47.6 mmHg (32.0-45.0) Arterial Blood Partial Pressure O2 74.1 mmHg (83.0-108.0) Arterial Blood HCO3 34.1 mmol/L (21.0-28.0) Arterial Blood Oxygen Saturation 94.6 % (94.0-98.0) Arterial Blood Base Excess 9.4 mmol/L (-2.0-3.0) Arterial Blood Oxyhemoglobin 92.8 % (94.0-98.0) Arterial Blood Carboxyhemoglobin 1.4 % (0.5-1.5) Arterial Blood Methemoglobin 0.5 % (0.0-1.5) Pawan Test Yes Blood Gas Total Hemoglobin 9.60 g/dL (12.0-16.0) Blood Gas Set Respiration Rate 20.0 Blood Gas Modality Vent - ac FiO2 % 35.0 Blood Gas Tidal Volume 400.0 Blood Gas PEEP or CPAP 5.0 POC Glucose 149 mg/dl (70-106) White Blood Count 10.1 10^3/uL (4.4-10.8) Red Blood Count 3.39 10^6/uL (4.0-5.20) Hemoglobin 8.5 g/dL (12.2-16.2) Hematocrit 28.4 % (36.0-46.0) Mean Corpuscular Volume 83.8 fL (80.0-100.0) Mean Corpuscular Hemoglobin 25.2 pg (28.0-32.0) Mean Corpuscular Hemoglobin Concent 30.1 g/dL (32.0-36.0) Red Cell Distribution Width 20.5 % (11.8-14.3) Platelet Count 210 10^3/uL (140-450) Mean Platelet Volume 7.9 fL (6.9-10.8) Neutrophils (%) (Auto) 90.8 % (37.0-80.0) Lymphocytes (%) (Auto) 2.6 % (10.0-50.0) Monocytes (%) (Auto) 5.7 % (0.0-12.0) Eosinophils (%) (Auto) 0.7 % (0.0-7.0) Basophils (%) (Auto) 0.2 % (0.0-2.0) Neutrophils # (Auto) 9.2 10 ^3/uL (1.6-8.6) Lymphocytes # (Auto) 0.3 10 ^3/uL (0.4-5.4) Monocytes # (Auto) 0.6 10 ^3/uL (0-1.3) Eosinophils # (Auto) 0.1 10 ^3/uL (0-0.8) Basophils # (Auto) 0 10 ^3/uL (0-0.2) Nucleated Red Blood Cells 0.1 % Sodium Level 143 mmol/L (136-145) Potassium Level 2.7 mmol/L (3.5-5.1) Chloride Level 99 mmol/L (98-107) Carbon Dioxide Level 34 mmol/L (20-31) Anion Gap 10 (5-15) Blood Urea Nitrogen 35 mg/dL (9-23) Creatinine 0.90 mg/dL (0.550-1.02) Glomerular Filtration Rate Calc 62 mL/min (>90) BUN/Creatinine Ratio 38.9 (10.0-20.0) Serum Glucose 168 mg/dL (74-106) Calcium Level 8.7 mg/dL (8.7-10.4) Magnesium Level 2.3 mg/dL (1.6-2.6) Total Bilirubin 0.6 mg/dL (0.2-1.0) Aspartate Amino Transferase (AST) 94 U/L (13-40) Alanine Aminotransferase (ALT) 24 U/L (7-40) Alkaline Phosphatase 95 U/L (46-116) Total Protein 5.2 g/dL (5.7-8.2) Albumin 3.0 g/dL (3.2-4.8) Random Vancomycin Level 12.7 ug/mL (5-10) Lactic Acid Level 1.7 mmol/L (0.4-2.0) Test 06/05/24 03:05 06/05/24 02:13 06/05/24 00:17 06/04/24 18:59 Reticulocyte Count (auto) 4.18 % (0.5-1.5) Hemoglobin A1c < 3.8 % A1C (<5.7) Iron Level 8 ug/dL (50-170) Total Iron Binding Capacity 301 ug/dL (250-425) Percent Iron Saturation 2.7 % (15-50) Ferritin 67.4 ng/mL (10-291) Lactate Dehydrogenase 322 U/L (120-246) Triglycerides Level 198 mg/dL (< 150) Cholesterol Level 104 mg/dL (< 200) LDL Cholesterol 29 mg/dL (< 100) HDL Cholesterol 48 mg/dL (40-59) Vitamin B12 Level 839 pg/mL (211-911) Folic Acid 34.21 ng/mL (>5.38) Thyroid Stimulating Hormone (TSH) 1.40 uIU/mL (0.55-4.78) Blood Gas Critical Value Read Back Yes Blood Gas Notified Whom perez [place] agacnp Blood Gas Notified Time [id number] Blood Gas Notified By poncho Aaron rrt Troponin I High Sensitivity 89 ng/L (</=34) B-Type Natriuretic Peptide 89.21 pg/mL (0-100) Test 06/04/24 15:38 06/04/24 13:59 06/04/24 13:53 06/04/24 13:22 Urine Color Yellow (Yellow) Urine Clarity Turbid (Clear) Urine pH 5.5 (5.0-9.0) Urine Specific [place] 1.021 (1.001-1.035) Urine Protein 1+ (Negative) Urine Ketones Negative (Negative) Urine Blood 1+ /uL (Negative) Urine Nitrite Negative (Negative) Urine Bilirubin Negative (Negative) Urine Urobilinogen Normal mg/dL (Negative) Urine Leukocyte Esterase Negative /uL (Negative) Urine RBC 37 /hpf (0 - 4) Urine Microscopic WBC 26 /HPF (0-5) Urine Squamous Epithelial Cells Few /hpf (<5) Urine Bacteria None seen /hpf (None Seen) Urine Glucose 4+ mg/dL (Normal) Urine Opiates Screen Neg (NEGATIVE) Urine Fentanyl Screen Neg (NEGATIVE) Urine Barbiturates Screen Neg (NEGATIVE) Urine Phencyclidine Screen Neg (NEGATIVE) Urine Amphetamines Screen Neg (NEGATIVE) Urine Benzodiazepines Screen Pos (NEGATIVE) Urine Cocaine Screen Neg (NEGATIVE) Urine Cannabinoids Screen Neg (NEGATIVE) Differential Total Cells Counted 100.0 (100) Neutrophils % (Manual) 77 (37.0-80.0) Band Neutrophils % (Manual) 17 Lymphocytes % (Manual) 3 (10.0-50.0) Monocytes % (Manual) 2 (0-12) Eosinophils % (Manual) 1 (0-7) Basophils % (Manual) 0 (0.0-2.0) Metamyelocytes % (manual) 0 Myelocytes % (Manual) 0 Promyelocytes % (Manual) 0 Blast Cells % (Manual) 0 Reactive Lymphocytes 0 Platelet Estimate Adequate Hypochromasia (manual) Slight Anisocytosis (manual) Slight Prothrombin Time 10.6 sec (9.3-11.8) Prothrombin Time INR 1.00 (0.9-1.15) Activated Partial Thromboplast Time 22.9 SEC (24.5-34.5) D-Dimer, Quantitative 13.83 mg/L FEU (0.0-0.49) Influenza Type A Antigen Negative (Negative) Influenza Type B Antigen Negative (Negative) SARS-CoV-2 Antigen (Rapid) Negative (NEGATIVE) Specimen Drawn By Field Merchandiser sandy barber Other Laboratory Tests 06/06/24 05:19 Brief Hx & Hospital Course: Shu Royal Is a 84 years old female with a PMH of CHF, DLD, type 2 DM, COPD on home oxygen, triple negative breast cancer, chronic GI bleed, morbid obesity brought by EMS to ED due to cardiopulmonary arrest on 06/04/2024. Per family patient has been more shortness of breath since 1 week which is aggravated by with a slight exertion, went to visit pulmonology on Wednesday, and Wednesday the plan to take patient to [place], while going to [place] in car she experienced severe shortness of breath with subsequent witnessed cardiopulmonary arrest with ACLS protocol implemented by EMS including four rounds of epinephrine given PEA followed by ROSC. Per family at bedside, the patient was diagnosed with breast cancer approximally five months ago undergoing radiation therapy including a total of nine treatments and three more pending later on this week. Chemotherapy had not been initiated yet. patient required hospital admission for further evaluation and management of cardiac arrest. Echocardiogram showed 60-65%, cardiology evaluated the patient. EKG showed AFib with RVR. CT head showed no acute changes for now. Due to septic shock patient was given vancomycin and Zosyn. patient have acute on chronic hypoxic respiratory failure due to pneumonia which is evident on CXR and CT chest, required intubation and mechanical ventilation. Patient was continuously monitor with CXR and ABG. CT showed left pleural effusion or pneumothorax along with multiple pulmonary nodules in right lung, consulted IR for possible chest tube. Due to GI bleed ordered stool occult blood which is pending. Closely monitored renal function and collected a electrolytes as needed. Patient condition was not improving, after discussion with the patient family, they decided to only comfort measures, And for terminal wean, removed the ET tube, patient at 12;32 today 06/06 Operations or Procedures CHEST RADIOGRAPH IMPRESSION: 1. Endotracheal tube terminates in the lower thoracic trachea. 2. Patchy multifocal airspace disease. 3. Moderate left pleural effusion. ------ Procedure: CT CT ANGIO CHEST CONTRAST IMPRESSION: 1. Multiple pulmonary nodules right lung field measuring 16 mm in the upper lung field ( series 313 image 18 15 mm nodule right lower lobe series 313 image 28 ) 11 mm nodule pleural-based right lower lobe series 313 image 30. Can not exclude metastatic disease. 2. Moderate left pleural effusion. 3. Left-sided pneumothorax extending from the apex of the diaphragm measuring 1- 2 cm from the lateral chest wall. Estimated at 30-40% CRITICAL FINDINGS Critical Result: CTA OF THE CHEST Findings discussed with , Dr Rivesr at 06/04/2024 10:51 PM, and acknowledged receipt and understanding of the findings. ------- CRITICAL FINDINGS: Critical Result: Stroke Alert : Negative Findings discussed with LENNIE Peters at 06/04/2024 08:59 PM, and acknowledged receipt and understanding of the findings. ORIGINAL REPORT EXAM: CT STROKE CTH INDICATION: ams TECHNIQUE: CT of the head without intravenous contrast. Radiation Dose Information: CT Dose: CTDI volume is 53.99 mGy. Dose-length product is 767.54 mGy*cm IMPRESSION: 1. No acute intracranial hemorrhage 2. No CT findings of territorial ischemia. ------ CT ANGIO HEAD/Neck INDICATION: PATIENT FOUND DOWN AND IS CURRENTLY CONSCIOUS FINDINGS: IMPRESSION: 1. NO LARGE VESSEL OCCLUSION. 2. ENDOTRACHEAL TUBE AND NASOGASTRIC TUBE VISUALIZED. 3. Normal CT angiographic findings of the head and neck. 4. BILATERAL LOWER EXTREMITY VENOUS DOPPLER IMPRESSION: 1. There is no sonographic evidence for DVT in the lower extremities HS:Y Left UPPER EXTREMITY VENOUS DOPPLER CLINICAL HISTORY: R/O DVT TECHNIQUE: Left upper extremity venous Doppler study was performed. IMPRESSION: 1. Thrombus seen in the left cephalic vein. HS:Y ECHO Conclusion The study is technically limited. Normal left ventricular size and systolic function. Ejection fraction is estimated at 60-65%. Normal right ventricular size and systolic function. No evidence of hemodynamically significant valvular disease. PA systolic pressure is estimated at 60-65 mm Hg. No significant pericardial effusion. Final Diagnosis/Problems List # ? anoxic or hypoxic encephalopathy # Cardiopulmonary arrest S/p ROSC # ? Acute on Chronic CHF likely diastolic # Type II NSTEMI likely due to above # Afib, RVR with a secondary hypercoagulable state # shock likely septic likely due to pneumonia # acute on chronic hypoxic respiratory failure likely due to PNA # acute Gram-positive are negative bacterial PNA/? MRSA or Pseudomonas PNA # ? COPD exacerbation # Left pleural effusion # small left pneumothorax # Multiple pulmonary nodules in the right lung, rule out metastasis # ? GI bleed # Morbid obesity # Hypokalemia # normocytic hypochromic anemia # likely anemia of chronic disease due to of neoplasm # Left triple negative breast cancer with ongoing radiotherapy # Multiple pulmonary nodules rt sided likely due to questionable mets # osteoarthritis # left cephalic vein DVT # Wheelchiar bound # Lacerated wound on right leg calf Discharge Disposition: at Hospital DIONNA VIRAMONTES RESIDENT Jun 06, 2024 17:53
[2024-06-06] MEDS ORDERED: EPINEPHrine HCL 1 MG/10 ML SYRG IV ONE (21:48)
== END 2024-06-06 12:32 | DRG 871 ==
LOC: EDBD 12:03 → ER 12:03 → EDSEX 12:03 → OVERFLOW 19:55
PROVIDERS: ADMIT Internal Medicine; ATTEND Internal Medicine
PROC: 5A1945Z Respiratory Ventilation, 24-96 Consecutive Hours (ICD-10-PCS; 2024-06-04)
PROC: 0BH17EZ Insertion of Endotracheal Airway into Trachea, Via Natural or Artificial Opening (ICD-10-PCS; 2024-06-04)
PROC: 5A12012 Performance of Cardiac Output, Single, Manual (ICD-10-PCS; 2024-06-04)
PROC: 5A2204Z Restoration of Cardiac Rhythm, Single (ICD-10-PCS; 2024-06-04)
PROC: 30233N1 Transfusion of Nonautologous Red Blood Cells into Peripheral Vein, Percutaneous Approach (ICD-10-PCS; principal; 2024-06-05)
DX: A41.9 Sepsis, unspecified organism (principal); I21.A1 Myocardial infarction type 2; J69.0 Pneumonitis due to inhalation of food and vomit; R65.21 Severe sepsis with septic shock; I50.33 Acute on chronic diastolic (congestive) heart failure; J96.21 Acute and chronic respiratory failure with hypoxia; J15.69 Pneumonia due to other Gram-negative bacteria; J15.9 Unspecified bacterial pneumonia; J93.9 Pneumothorax, unspecified; G93.1 Anoxic brain damage, not elsewhere classified; J44.0 Chronic obstructive pulmonary disease with (acute) lower respiratory infection; E87.20 Acidosis, unspecified; D68.69 Other thrombophilia; J44.1 Chronic obstructive pulmonary disease with (acute) exacerbation; K92.2 Gastrointestinal hemorrhage, unspecified; I82.612 Acute embolism and thrombosis of superficial veins of left upper extremity; J90 Pleural effusion, not elsewhere classified; I48.20 Chronic atrial fibrillation, unspecified; Z20.822 Contact with and (suspected) exposure to COVID-19; Z66 Do not resuscitate; I46.9 Cardiac arrest, cause unspecified; C50.912 Malignant neoplasm of unspecified site of left female breast; E66.9 Obesity, unspecified; I11.0 Hypertensive heart disease with heart failure; I48.91 Unspecified atrial fibrillation; E11.65 Type 2 diabetes mellitus with hyperglycemia; E78.5 Hyperlipidemia, unspecified; I27.20 Pulmonary hypertension, unspecified; E66.01 Morbid (severe) obesity due to excess calories; E87.6 Hypokalemia; D50.9 Iron deficiency anemia, unspecified; M19.09 Primary osteoarthritis, other specified site; S81.811A Laceration without foreign body, right lower leg, initial encounter; D63.8 Anemia in other chronic diseases classified elsewhere; D63.0 Anemia in neoplastic disease; Z79.4 Long term (current) use of insulin; Z68.32 Body mass index [BMI] 32.0-32.9, adult; Z79.899 Other long term (current) drug therapy; X58.XXXA Exposure to other specified factors, initial encounter; Y93.89 Activity, other specified; Y92.89 Other specified places as the place of occurrence of the external cause; Y99.8 Other external cause status; Z99.3 Dependence on wheelchair
CPT/HCPCS: 36415; 36600; 70450; 70496; 70498; 71045; 71275; 80053; 80061; 80202; 80307; 81001; 82607; 82728; 82746; 82805; 82962; 83036; 83540; 83550; 83605; 83615; 83735; 83880; 84443; 84484; 85007; 85014; 85018; 85025; 85027; 85045; 85379; 85610; 85730; 86850; 86900; 86901; 86920; 87040; 87070; 87077; 87081; 87086; 87205; 87426; 87804; 93005; 93306; 93970; 93971; 94002; 94003; 94640; 99291; G0378; J1815; J2470; J2543; J3480